=== PATIENT | female | born 1945 | race African-American/Black ===

== ENCOUNTER → 2018-12-12 | Outpatient (CLI) | payer OTHER | LOC: HYPER 12-02 14:47 | DX: E11.622 Type 2 diabetes mellitus with other skin ulcer (principal); L89.154 Pressure ulcer of sacral region, stage 4; L98.491 Non-pressure chronic ulcer of skin of other sites limited to breakdown of skin; E11.40 Type 2 diabetes mellitus with diabetic neuropathy, unspecified; E11.51 Type 2 diabetes mellitus with diabetic peripheral angiopathy without gangrene; E11.69 Type 2 diabetes mellitus with other specified complication; M86.9 Osteomyelitis, unspecified; I25.10 Atherosclerotic heart disease of native coronary artery without angina pectoris; I10 Essential (primary) hypertension; E78.5 Hyperlipidemia, unspecified; K21.9 Gastro-esophageal reflux disease without esophagitis; Z79.84 Long term (current) use of oral hypoglycemic drugs; Z79.4 Long term (current) use of insulin ==

== ENCOUNTER → 2018-12-25 | Outpatient (CLI) | payer OTHER | LOC: HYPER 06:34 | DX: E11.622 Type 2 diabetes mellitus with other skin ulcer (principal); L89.154 Pressure ulcer of sacral region, stage 4; L98.491 Non-pressure chronic ulcer of skin of other sites limited to breakdown of skin; L84 Corns and callosities; E11.51 Type 2 diabetes mellitus with diabetic peripheral angiopathy without gangrene; E11.42 Type 2 diabetes mellitus with diabetic polyneuropathy; E11.69 Type 2 diabetes mellitus with other specified complication; M86.9 Osteomyelitis, unspecified; E78.5 Hyperlipidemia, unspecified; I25.10 Atherosclerotic heart disease of native coronary artery without angina pectoris; I10 Essential (primary) hypertension; K21.9 Gastro-esophageal reflux disease without esophagitis; Z79.84 Long term (current) use of oral hypoglycemic drugs; Z79.4 Long term (current) use of insulin ==

== ENCOUNTER → 2019-01-15 | Outpatient (CLI) | payer OTHER ==
[~2019-01-15] MED LIST: AMLODIPINE BESY10 MG PO; GABAPENTIN 100100 MG PO; JANUVIA 50 MG T50 M1 PO; LANTUS SUBQ; LIPITOR40 MG PO; NOVOLOG100 UNIT/1 SUBQ
== END ==
LOC: HYPER 06:46
DX: E11.622 Type 2 diabetes mellitus with other skin ulcer (principal); L89.154 Pressure ulcer of sacral region, stage 4; L98.491 Non-pressure chronic ulcer of skin of other sites limited to breakdown of skin; E11.51 Type 2 diabetes mellitus with diabetic peripheral angiopathy without gangrene; E11.69 Type 2 diabetes mellitus with other specified complication; M86.9 Osteomyelitis, unspecified; E11.42 Type 2 diabetes mellitus with diabetic polyneuropathy; I10 Essential (primary) hypertension; L84 Corns and callosities; I25.10 Atherosclerotic heart disease of native coronary artery without angina pectoris; E78.5 Hyperlipidemia, unspecified; K21.9 Gastro-esophageal reflux disease without esophagitis; Z79.4 Long term (current) use of insulin; Z79.84 Long term (current) use of oral hypoglycemic drugs

== ENCOUNTER 2019-01-17 05:30 | Inpatient (IN) | payer OTHER ==
[~2019-01-17] VITALS: Ht 160 cm; Wt 75.0 kg
[2019-01-17 07:58] LABS: HEMATOCRIT 25.7 % (37.0-47.0)
[2019-01-17 08:00] LABS: HEMOGLOBIN 7.9 gm/dL (12.0-15.0)
[2019-01-17 08:41] VITALS: BP 98/48
--- NOTE | 2019-01-17 08:44 | EKG ---
[address] [address] ELECTROCARDIOGRAM REPORT Name: RONALDO ACEVEDO Room #: 150-1 ADM IN M.R.#: [id number] ������������������ Admission: 01/17/19 ������������������ Attend Phys: Ant Villalpando MD, Discharge: ������������������ Date of : 47 Report #: [id number] ����������������������������������������������������������������� [id number] THIS REPORT FOR: //name// [facility] Test Date: 2019-01-17 Test Time: 08:01:06 Pat Name: RONALDO ACEVEDO Department: Room: 150 Gender: F Loan Clerk: LAURITA : 1945 Requested By: Ant Villalpando Order Number: [id number] MD: Monroe Goodson Measurements Intervals [place] Rate: 85 P: 62 ID: [id number] QRS: 15 QRSD: 155 T: 172 QT: 401 QTc: 477 Interpretive Statements Sinus rhythm Left bundle branch block No previous ECG available for comparison Electronically Signed On 01-17-2019 8:44:45 CDT by Monroe Goodson [email or web address] ��������������������������������������������� <ELECTRONICALLY SIGNED> ���������������������������������������� By: Monroe Goodson MD, [facility] ��������������������������������������������� 01/17/19 0844 0801 08 Monroe Goodson MD, FACC /EPI
--- NOTE | 2019-01-17 11:58 | O ---
[facility] [place] [address] OPERATIVE REPORT Name: RONALDO ACEVEDO Room #: 150-1 ADM IN M.R.#: [id number] Admission: 01/17/19 ������������������ Attend Phys: Ant Villalpando MD, Discharge: ������������������ Date of : 47 Report #: [id number] THIS REPORT FOR: //name// CC: Ant Mary DATE OF SERVICE: 01/17/2019 PREOPERATIVE DIAGNOSES: 1. 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 2. Paraplegia. 3. Diabetes mellitus. 4. Hypertension. 5 Severe protein-calorie malnutrition. POSTOPERATIVE DIAGNOSES: 1. 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 2. Paraplegia. 3. Diabetes mellitus. 4. Hypertension. 5 Severe protein-calorie malnutrition. PROCEDURES PERFORMED: 1. Excisional debridement of skin, subcutaneous tissue, muscle and bone of a non-healing grossly infected stage 4 sacral decubitus wound, ultimately measuring 17.5 x 17.5 cm in dimension (306.25 cm2). Preoperative wound measurements were 9 x 6 cm with significant periwound necrosis and undermining. 2. Application of extracellular matrix tissue (PriMatrix Ag) to the entire 306.25 cm2 wound. 3. Diverting loop transverse colostomy. SURGEON: Ant Villalpando M.D. WORKFORCE DEVELOPMENT ASSISTANT: None. ANESTHESIA: General endotracheal anesthesia. ESTIMATED BLOOD LOSS: 20 mL. COMPLICATIONS: None appreciated. SPECIMENS: All sacral tissue to pathology, including bone. INDICATIONS: The patient is a 73-year-old -[place] female with long-standing paraplegia, who has developed a severe stage 4 sacral decubitus wound with gross infection with purulent output and exposed bone. The patient [address] [address] OPERATIVE REPORT Name: RONALDO ACEVEDO Room #: 150-1 ADM IN M.R.#: [id number] Admission: 01/17/19 ������������������ Attend Phys: Ant Villalpando MD, Discharge: ������������������ Date of : 47 Report #: [id number] does have chronic fecal contamination of the wound and as such, indication was for the above-mentioned procedures today. DESCRIPTION OF PROCEDURE: After explaining the risks, benefits and alternatives of the procedure with the patient in detail and obtaining consent, the patient was brought to the operating room and placed supine on her hospital bed. After conducting a thorough timeout procedure, verifying correct patient and procedure, the patient was given general endotracheal anesthesia. Once adequate anesthesia was obtained, she was positioned on the operating room table in the prone position, with all pressure points appropriately padded and her sacral wound was prepped and draped in a standard surgical sterile fashion. Electrocautery was used to circumferentially debride all nonviable skin, subcutaneous tissue and muscle from the periphery of the wound, carried down to the bed of the wound where sacral bone was easily evident in the bed of the wound. All gross purulent drainage was wiped away and the debridement was carried back to healthy vascularized tissue throughout. Hemostasis was assured with electrocautery. The Content Ramen ultrasonic debridement tool was used to remove all remaining nonviable tissue as well as biofilm from the entirety of the wound. Gentle manual pressure was held for complete hemostasis aided with electrocautery. As this is such a large wound, I did elect to place a PriMatrix Ag. Two separate 8 x 8 cm pieces of meshed material was utilized to cover the entirety of the wound. This was stapled around the periphery of the wound with a skin stapler and numerous 3-0 Vicryl interrupted sutures were placed throughout the body of the meshed graft to hold it in close approximation with the wound tissue bed. The wound was then covered with Adaptic and stapled to the wound dressed with 4 x 4s, ABDs and Medipore tape. The patient was then positioned in the supine position and her abdomen was prepped and draped in a standard surgical sterile fashion. A #15 bladed scalpel was used to create a 2.5 cm vertical incision midway between the umbilicus and the xiphoid, just to the right of midline. Electrocautery was used to carry this down through skin and subcutaneous tissues until I arrived upon the anterior fascia. The fascia was scored vertically, revealing the right rectus abdominis muscle, of which the belly was split longitudinally with a hemostat. This revealed the posterior rectus sheath, which was elevated between hemostats and opened with Metzenbaum scissors. A finger was placed in the abdomen and the entire wound was opened for the 2.5 cm length. The transverse colon was seen to reside immediately posterior to this incision and was elevated in the wound with Vanessa clamps. A colotomy was made with electrocautery on the antimesenteric aspect of the colon and this was opened in a controlled fashion with a hemostat placed in the colotomy to ensure no damage to the back wall of the colon. This colotomy was extended with electrocautery for hemostasis. I now matured the colostomy using four sutures at the 12, 3, 6, and 9 o'clock positions that were full-thickness sutures, grabbing seromuscular bites lower and to the fascia in standard Natalia fashion. Each of the four resultant quadrants were anchored at the mucocutaneous juncture with short runs of 3-0 Vicryl in standard [address] [address] OPERATIVE REPORT Name: RONALDO ACEVEDO Room #: 150-1 [facility] IN M.R.#: [id number] Admission: 01/17/19 ������������������ Attend Phys: Ant Villalpando MD, Discharge: ������������������ Date of : 47 Report #: [id number] full-thickness fashion. This gave us an excellently oriented loop transverse colostomy and digital finger intubation showed both afferent and efferent limbs patent to a subfascial level. The colostomy was dressed with a sterile 2 piece colostomy appliance completing the procedure. At the end of the procedure, all instrument, needle and sponge counts were correct. The patient tolerated the procedure without incident, was awakened in the operating room and transitioned to the recovery room in stable condition, with no apparent complications. ��������������������������������������������� <ELECTRONICALLY SIGNED> ���������������������������������������� By: Ant Villalpando MD, FACS ��������������������������������������������� 01/17/19 1158 1120 1145 Ant Villalpando MD, FACS /nt
[2019-01-17 13:22] VITALS: BP 113/58
--- NOTE | 2019-01-17 14:45 | NUR ---
WOUND CARE NOTE; ATTEMPTED VAC APPLICATION. WITHIN TWO MINUTES BLEEDING SATURATED THE DRESSING. REMOVED VAC DRESSING. OBTAINED ORDERS TO D/C THE VAC FOR NOW TO ACHIEVE HOMOSTASIS. CCOVERED WOUND WITH NS MOIST DRESSING, COVERED WITH AND ABD, SECURED WITH TAPE DISCUSSED WITH RN
--- NOTE | 2019-01-17 16:15 | NUR ---
PT ADMITTED RELATED TO WOUND DEBRIDEMENT, COLOSTOMY PLACEMENT. CM REVIEWED CHART AND SPOKE WITH CARE TEAM. CM MET WITH PT AT BEDSIDE THIS DAY. CM MET WITH PT AT BEDSIDE THIS DAY. PT IS A&O X4. CM ROLE INTRODUCED. PT INDICATED SHE LIVES IN A HOUSE WITH HER KIDS WITH 1 STEP TO ENTER AND NO STEPS INSIDE. SHE INDICATED THAT SHE HAD USED A MANUAL WHEELCHAIR TO ASSIST WITH MOBILITY PT. SHE INDIATED SHE NEEDED FAMILY TO ASSIST HER WITH TRANSFERS. PT INDICATED SHE HAD BEEN IN SERVICE WITH [facility] IN THE PAST. PT INDICATED SHE IS INTERESTED IN GOING TO A SKILLED REHAB FACILITY ONCE MEDICALLY STABLE. CM TO FOLLOW INDICATED WITH DC PLANNING.
[2019-01-17 17:25] VITALS: BP 105/60
[2019-01-17 19:43] VITALS: BP 95/58
--- NOTE | 2019-01-17 20:15 | NUR ---
Pt admitted on the floor from OR, transferred to bed safely. Pt offered snack pack upon arrival asked if she could have tea and jello instead- given. Able to tolerate dinner. Due medications given as prescribed. Able to swallow tablets w/o difficulty Admission nurse David helped in admitting pt(HX and ED). O2 1 lpm via nasal cannula, called in RT to put humidifier. With colostomy bag- no output yet. A/W OT/PT evaluation. Pt turned on her sides regularly. Sacral wound check with wound nurse, area with mesh stapled, as per wound nurse, d/c vac for the meantime will see on sunday if vac to be resumed, to check wound site frequently for bleeding may change outer dressing, wet to dry gauze + abd, if with further bleeding to contact surgeon- dressing changed 1x by stewart nurse. Pt A+O. Visited by relatives today. Complained of pain, due medications given as prescribed. On blood sugar monitoring- with insulin coverage. Pt with SCDs on, on low air flow mattress. Admitting assessment done on patient. To monitor UO q4- night nurse informed as well as PRN dressing changes. Vital signs stable the whole shift.
[2019-01-18 04:53] VITALS: BP 92/30
[2019-01-18 05:02] LABS: CALCIUM 8.3 mg/dL (8.5-10.1); CREATININE 1.1 mg/dL (0.6-1.0); POTASSIUM 5.2 mmol/L (3.5-5.1)
[2019-01-18 05:05] LABS: HEMOGLOBIN 7.8 gm/dL (12.0-15.0); MCH 23.6 pg (26.0-34.0); MCHC 31.1 g/dL (28.0-37.0); MCV 75.9 fL (80.0-100.0); RBC 3.29 mil/uL (4.20-5.00); RDW 18.6 % (10.5-14.5); WBC 12.8 thou/uL (4.0-11.0)
[2019-01-18 05:58] VITALS: BP 105/53
--- NOTE | 2019-01-18 07:51 | NUR ---
Assumed care at 1845. Pt resting in bed. AOX4. VSS. Turn Q2. Changed dressing in sacral wound. Pt has been incontinent of bowel and bladder. No identified needs at the moment. Will continue to monitor.
[2019-01-18 08:00] VITALS: BP 103/54
[2019-01-18 15:00] VITALS: BP 87/46
--- NOTE | 2019-01-18 17:14 | NUR ---
PT A&OX4, VSS, DENIES PAIN. PATIENT HAS BEEN ABLE TO HELP WITH HER TURNS AND MOVE HERSELF AROUND IN BED. BLOOD PRESSURE HAS BEEN RUNNING LOW, PATIENT ASYMPTOMATIC. CALL MADE TO DOCTOR AND WILL CONTINUE TO MONITOR BLOOD PRESSURE AND PATIENT S/S, ORIENTATION, PER DOCTOR. DRESSING CHANGED TODAY. WILL CONTINUE TO MONITOR.
[2019-01-18 19:13] VITALS: BP 86/41
--- NOTE | 2019-01-19 03:32 | NUR ---
ASSUMED CARE AROUND 1900. AXOX4. COLOSTOMY INTACT. HYPOTENSION ADRRESSED TO MIAH WATCH AND CLOCK REPAIR CLERK, MONITOR FOR NOW PER WATCH AND CLOCK REPAIR CLERK. PT DENIES LIGHTHEADEDNESS/DIZZINESS. NO S/S ACUTE DISTRESS NOTED OR REPORTED AT THIS TIME. WILL CONT TO MONITOR FOR ANY CHANGES IN CONDITION.
[2019-01-19 03:44] VITALS: BP 88/51
[2019-01-19 05:47] LABS: ABSOLUTE NEUTROPHILS 6.7 thou/uL (1.4-8.2); BASOPHILS 0.4 % (0.0-2.0); EOSINOPHILS 1.5 % (0.0-3.0); HEMATOCRIT 22.9 % (37.0-47.0); HEMOGLOBIN 7.1 gm/dL (12.0-15.0); LYMPHOCYTES 21.5 % (24.0-44.0); MCH 23.5 pg (26.0-34.0); MCHC 30.9 g/dL (28.0-37.0); MCV 76.2 fL (80.0-100.0); MONOCYTES 9.3 % (1.0-8.0); PLATELET COUNT 598 thou/uL (150-400); POLYS 67.3 % (36.0-66.0)
[2019-01-19 05:57] LABS: ALBUMIN 1.4 g/dL (3.4-5.0); CALCIUM 8.5 mg/dL (8.5-10.1); CREATININE 1.1 mg/dL (0.6-1.0); PHOSPHORUS 2.6 mg/dL (2.5-4.9); POTASSIUM 5.2 mmol/L (3.5-5.1)
[2019-01-19 07:30] VITALS: BP 87/53
--- NOTE | 2019-01-19 13:45 | NUR ---
TOWARDS POC PT A/O X4, VSS, AFEBRILE, DENIES PAIN. WOUND CARE AND DRESSING DONE. LADD CATH INSERTED. PT HAD BM X2 TODAY. WILL CONTINUE TO MONITOR.
[2019-01-19 14:10] VITALS: BP 94/55
[2019-01-19 20:05] VITALS: BP 99/53
--- NOTE | 2019-01-20 02:50 | NUR ---
ASSUMED CARE AROUND 1900. AXOX4. COLOSTOMY INTACT. BM THRU RECTUMX2. PRODUCING SMALL AMOUNT ON COLOSTOMY AT THIS TIME. SACRAL WOUND DRESSING CHANGEDX2. LADD INTACT DRAINING YELLOW URINE. NO S/S ACUTE DISTRESS NOTED OR REPORTED AT THIS TIME. WILL CONT TO MONITOR FOR ANY CHANGES IN CONDITION.
[2019-01-20 03:53] VITALS: BP 102/58
[2019-01-20 05:44] LABS: HEMATOCRIT 22.7 % (37.0-47.0); HEMOGLOBIN 6.9 gm/dL (12.0-15.0); MCH 23.1 pg (26.0-34.0); MCHC 30.4 g/dL (28.0-37.0); MCV 75.9 fL (80.0-100.0); RBC 2.99 mil/uL (4.20-5.00); RDW 18.4 % (10.5-14.5); WBC 9.2 thou/uL (4.0-11.0)
[2019-01-20 06:03] LABS: % SATURATION 8 % (20-39); IRON 10 ug/dL (50-170); TIBC 123 ug/dL (250-450)
[2019-01-20 06:10] LABS: POTASSIUM 4.5 mmol/L (3.5-5.1)
[2019-01-20 06:49] LABS: FOLIC ACID 5.4 ng/mL (8.6-58.9)
[2019-01-20 07:54] VITALS: BP 100/56
--- NOTE | 2019-01-20 08:40 | HC ---
[facility] [place] [address] CONSULTATION Name: RONALDO ACEVEDO Room #: 458-P ADM IN M.R.#: [id number] Admission: 01/17/19 ������������������ Attend Phys: Ant Villalpando MD, Discharge: ������������������ Date of : 47 Report #: [id number] THIS REPORT FOR: //name// CC: Ant Mary DATE OF SERVICE: 01/17/2019 CHIEF COMPLAINT: Stage 4 sacral pressure ulceration. HISTORY OF PRESENT ILLNESS: This is a 73-year-old female patient known to our practice with a stage 4 pressure ulceration of the sacrum and has become stagnant with rolled edges and is having ongoing fecal contamination. She was admitted to the hospital for surgical debridement as well as diverting colostomy. PAST MEDICAL HISTORY: Positive for paraplegia, stage 4 sacral pressure ulcer, hypertension, severe protein-calorie malnutrition, diabetes mellitus. ALLERGIES: No known drug allergies. MEDICATIONS: Include amlodipine, gabapentin, atorvastatin, insulin, Januvia. FAMILY HISTORY: Noncontributory. SOCIAL HISTORY: Negative for alcohol or tobacco use. REVIEW OF SYSTEMS: CONSTITUTIONAL: The patient denies fever, chills or weight loss. NEUROLOGICAL: The patient has paraplegia. ENT: The patient denies earache, nasal drainage, sore throat. CARDIOVASCULAR: The patient denies chest pain, palpitations or diaphoresis. PULMONARY: The patient denies cough or shortness of breath. GASTROINTESTINAL: The patient denies nausea, vomiting, diarrhea or abdominal pain. She does have recent diverting colostomy today. Other systems in a 14-point review of systems are negative. PHYSICAL EXAMINATION: VITAL SIGNS: At this time include temperature 36.5, pulse 78, respiratory rate 16, blood pressure 113/58. GENERAL: This is a chronically ill-appearing female patient who appears to be in minimal distress. HEENT: Head is normocephalic. Nose and throat clear. NECK: Supple. LUNGS: Clear. [facility] [address] [place] [address] CONSULTATION Name: RONALDO ACEVEDO Room #: 458[facility].#: [id number] Admission: 01/17/19 ������������������ Attend Phys: Ant Villalpando MD, Discharge: ������������������ Date of : 47 Report #: [id number] HEART: Regular. ABDOMEN: Soft. Bowel sounds present. Colostomy appears to be pink and with small amount of bloody output. Sacral region demonstrates sacral ulceration that is clean without evidence of rolled edges. There is a PriMatrix in the base with a protective Adaptic layer above on top of this. NEUROLOGIC: The patient is alert, moving upper extremities. She has lower extremity paralysis. LABORATORY AND DIAGNOSTIC DATA: Hemoglobin 7.9, hematocrit 25.7. CLINICAL IMPRESSION: 1. Stage 4 sacral pressure ulceration, status post surgical debridement and placement of tissue substitute. 2. Status post diverting colostomy. 3. Paraplegia. 4. Diabetes mellitus. 5. Moderate to severe protein-calorie malnutrition. RECOMMENDATIONS: At this point in time, the patient will be placed in the low air loss mattress with q.2 hour turning repositioning. We will place a wound VAC over the surgical wound with the Adaptic and the PriMatrix left in place. We will recommend aggressive nutritional support. Routine postoperative care for the colostomy. Continue with aggressive nutritional support to maximize wound healing. I appreciate being asked to see her in consultation. ��������������������������������������������� <ELECTRONICALLY SIGNED> ���������������������������������������� By: Won Munoz MD ��������������������������������������������� 01/20/19 0840 03 2235 Won Munoz MD /nt
--- NOTE | 2019-01-20 15:01 | NUR ---
CM FOLLOWED UP WITH PT AND DTR THIS DAY AND THEY ASKED THAT REFERRAL BE SENT TO [facility] FOR REVIEW FOR POSSIBLE ADMISSION. CM TO FOLLOW INDICATED WITH DC PLANNING.
--- NOTE | 2019-01-20 15:27 | NUR ---
Discharge Planning: DP faxed initial referral to [facility], vanessa notified [facility]/R[facility] and [facility]. Patient may possibly dc today, although no orders are in at this time.
--- NOTE | 2019-01-20 17:04 | NUR ---
[facility] SANDRA THEY AREN'T ABLE TO MEET PT'S NEEDS. BOP IS TO DO ONSIGHT VISIT WITH PT TOMORROW MORNING. CM TO FOLLOW INDICATED WITH DC PLANNING.
--- NOTE | 2019-01-20 17:05 | PATH ---
[facility] [address] [place] [address] PATHOLOGY RPT PROCEDURE Name: RONALDO ACEVEDO Room #: 458-P ADM IN M.R.#: [id number] ������������������ Admission: 01/17/19 ������������������ Date of : 47 Discharge: Report #: [id number] Path Case #: [id number] [facility] Accession Number: [id number] . 01 Material submitted: . sacrum - SACRAL TISSUE . 01 Clinical history: . Sacral wound . 02 Diagnosis: Sacral tissue, debridement: - Skin and subcutaneous tissue with marked acute inflammation, as well as fibrinoid degeneration in addition to gangrenous necrosis, consistent with debridement tissue. - Viable skin showing reactive changes. (IUV:mauro; 01/20/2019) QMS/01/20/2019 . 02 Electronically signed: . Jessica Yeager MD, Pathologist NPI- [id number] . 01 Gross description: . The specimen is received in formalin, labeled "Lj, Ronaldo, sacral tissue" and consists of a U-shaped segment of partially necrotic brown skin measuring 12.3 x 8.8 x 3.1 cm. Retort Furnace Operator sections are submitted in A1-A2. (SDY; 01/17/2019) SYU/SYU . 02 Pathologist provided ICD-10: L08.9, I96 . 02 CPT . 819456 Specimen Comment: A courtesy copy of this report has been sent to Specimen Comment: [phone], . Specimen Comment: Report sent to DR CASTRO / DR JONES Performed at: [address], [place] [id number] MD Geovany Peterson MD Phone: [phone] Performed at: [address] [id number] MD Jessica Yeager MD Phone: [phone]
[2019-01-20 17:35] VITALS: BP 114/68
[2019-01-20 20:10] VITALS: BP 109/60
--- NOTE | 2019-01-20 20:10 | NUR ---
ASSUMED CARE OF PATIENT AT 0715, PATIENT ALERT AND ORIENTED X 4. PATIENT BEDREST, SINCE SURGERY 01/17/19. PATIENT C/O SOME PAIN WITH RIGHT LOWER ABDOMEN, SACRUM AREA/ BILATERAL LEGS, RECEIVED TYLENOL PRIOR TO THIS SHIFT, TYLENOL GIVEN AT 1521 2 TABLETS WITH COMPLETE RELIEF. PATIENT HAS COLOSTOMY PLACE ON 01/17/19, STILL HAVING STOOLS FROM RECTUM X 3 TODAY, DRESSING CHANGED X3 THIS SHIFT. WOUND CARE SAW PATIENT AND STATED WOUND VAC TODAY, BUT NOT PLACE. PATIENT HAS LEFT FOREARM IV IN PLACE. PATIENT HAS LADD CATHETER IN PLACE WITH ADEQUATE AMT. OF URINE. LABD DRAWN DUE TO HEMG. 6.9, NEW RESULT 7.1, PATIENT STARTED IV IRON. WILL CONTINUE TO MONITOR.
[2019-01-21 03:30] LABS: HEMATOCRIT 22.8 % (37.0-47.0); HEMOGLOBIN 7.1 gm/dL (12.0-15.0); MCH 23.1 pg (26.0-34.0); MCHC 30.9 g/dL (28.0-37.0); MCV 74.8 fL (80.0-100.0); RBC 3.06 mil/uL (4.20-5.00); RDW 18.8 % (10.5-14.5); WBC 12.5 thou/uL (4.0-11.0)
[2019-01-21 04:01] VITALS: BP 92/42
--- NOTE | 2019-01-21 04:24 | NUR ---
A/O, calm and cooperative. WBC elevated, afebrile. Incontinent stool, wound contaminated. Nursing Practioner Julianna Jeb reported. Colostomy bag leaking, awaiting a new bag to replace. C/o pain in abdomen, only accepts Tylenol. c/o nausea, medication given and worked. bed rest, will keep monitoring.
[2019-01-21 07:20] VITALS: BP 94/53
--- NOTE | 2019-01-21 11:23 | NUR ---
WOUND CARE FOLLOW UP; ROUNDING WITH DR GRACE AND EMI SENIOR INTEGRATION ARCHITECT TODAY. VISUALIZED THE SACRAL WOUND, THE GRAFT IS INTACT AN REMAINS STAPLED IN PLACE. DISCHARGE IS IMMINENT.
[2019-01-21 14:06] VITALS: BP 96/50
--- NOTE | 2019-01-21 16:41 | NUR ---
[facility] VISITED AND INDICATED THEY COULD ACCEPT PT BUT THAT PT WILL ADMIT WITH ONE COVERED DAY AND WILL THEN BE IN COPAY DAYS AND WILL OWE $170.50 PER DAY UNTIL $6000 OP IS MET THROUGH HER SECONDARY. CM CALLED PT'S DTR AND LEFT VM WITH THIS INFO TO DETERMINE IF THEY ATE CONFORTABLE WITH PAYING COPAY FOR SNF. [facility] HASN'T HEARD BACK. [facility] CALLED TO SEE IF THEY COVER COPAY AND THEY DO NOT. NO FOLLOWING REGARDING DC PLANNING. PT ISN'T MEDICALLY STABLE AT THIS TIME.
[2019-01-21 19:05] LABS: URINE BILIRUBIN NEGATIVE (Negative); URINE BLOOD 3+ (Negative); URINE CLARITY CLEAR; URINE COLOR YELLOW; URINE GLUCOSE-RANDOM* NEGATIVE (Negative); URINE KETONES NEGATIVE (Negative); URINE LEUKOCYTES-REFLEX 2+ (Negative); URINE NITRITE-REFLEX NEGATIVE (Negative); URINE PROTEIN (DIPSTICK) NEGATIVE (Negative); URINE SPECIFIC GRAVITY <= 1.005 (1.005-1.035); URINE UROBILINOGEN 0.2 E.U./dl (0.2-1.0)
[2019-01-21 19:16] LABS: BACTERIA-REFLEX None Seen /HPF (None Seen); CASTS None Seen /LPF (None Seen); CRYSTALS None Seen /LPF (None Seen); SQUAMOUS 4-10 Moderate /LPF (0-3); URINE WBC-REFLEX 6-15 Few /HPF (0-5); YEAST-REFLEX Present (None Seen)
[2019-01-21 20:09] VITALS: BP 93/48
--- NOTE | 2019-01-21 20:10 | NUR ---
PT A&OX4, VSS, PAIN IN SACRUM MANAGED WITH PAIN. PATIENT TURNED Q2, DRESSING CHANGED THREE TIMES TODAY D/T LOOSE STOOLS. PT HAD NEW COLOSTOMY BAG PLACED. FAMILY AT BEDSIDE. PT AWAITING PLACEMENT TO FACILITY. FALL BUNDLE IN PLACE, WILL CONTINUE TO MONITOR.
[2019-01-22 00:18] VITALS: BP 92/54
[2019-01-22 04:44] LABS: MCH 23.1 pg (26.0-34.0); MCHC 30.7 g/dL (28.0-37.0); MCV 75.2 fL (80.0-100.0); RBC 2.64 mil/uL (4.20-5.00); WBC 17.8 thou/uL (4.0-11.0)
[2019-01-22 04:47] LABS: HEMATOCRIT 19.9 % (37.0-47.0); HEMOGLOBIN 6.1 gm/dL (12.0-15.0)
[2019-01-22 04:56] LABS: ALBUMIN 1.2 g/dL (3.4-5.0); CALCIUM 8.5 mg/dL (8.5-10.1); MAGNESIUM 1.5 mg/dL (1.8-2.4); POTASSIUM 4.6 mmol/L (3.5-5.1); TOTAL BILIRUBIN 0.1 mg/dL (<0.1-1.0); TOTAL PROTEIN 5.5 g/dL (6.4-8.2)
[2019-01-22 05:03] VITALS: BP 89/51
--- NOTE | 2019-01-22 06:34 | NUR ---
Received crital labs Hgb 6.1 and Hct 19[address] Wheatley recieved orders for one unit of blood. Will notify the incoming nurse to order labs for hgb 30mins after infusion.
[2019-01-22 07:35] VITALS: BP 81/45
[2019-01-22 12:35] VITALS: BP 100/57; BP 109/56
--- NOTE | 2019-01-22 17:14 | NUR ---
JoannaN IS ASSESSING AND ASKED [facility] MCKEON SOME ADDITIONAL INFO FOR PT'S DTR REGARDING PLOF. MYRIAM INDICATED THAT PT HAD BEEN AMBULATORY UP UNTIL MID OCTOBER WITH A FWW. SHE INDICATED THAT PT HAD BEEN ABLE TO ASSIST WITH SBA WITH HER OWN TRANSFERS COMPUTER GAME TESTER. MYRIAM INDICATED THAT HER DTR AND BROTHER ARE IN THE HOME AND WILL BE ABLE TO ASSIST PT WITH CARES UPON HER RETURN HOME. PINO CONVEYED THIS TO [facility] LIAISON. OT IS TO WORK WITH PT IN THE AM. PT WAS GETTING BLOOD TODAY AND HADN'T BEEN ABLE TO PARTICIPATE WITH THERAPY WELL. PINO العلي INDICATED WITH DC PLANNING.
[2019-01-22 19:07] VITALS: BP 108/62
--- NOTE | 2019-01-22 19:59 | NUR ---
ASSUMED CARE OF PATIENT AT 0715, PATIENT ALERT AND ORIENTED X 4. PATIENT ON BEDREST. PT TRIED TO WORK WITH PATIENT SHE WAS TOO WEAKM OT WILL TRY TOMORROW, DUE TO PATIENT RECEIVING BLOOD. PATIENT HEMG. 6.1, ORDER FOR TRANSFUSE 1 UNIT OF BLOOD DONE THIS SHIFT COMPLETED AT 1655, NO REACTION NOTED, VITAL SIGNS STABLE AFTER BLOOD RECEIVED, IV WENT BAD DURING START OF BLOOD, NEW IV INSERTED PER IV TEAM, VITALS SIGNS DONE OVER WHEN BLOOD RESTARTED. B/P LOW THIS AM, DR SONG NOTIFIED. COLOSTOMY WORKING FINE, OUTPUT GOOD. PATIENT HAS LADD CATHETER IN PLACE WITH ADEQUATE OUTPUT. PATIENT RECEIVED TYLENOL 650 X 1 THIS SHIFT. WOUND CARE APPLIED WOUND VAC TODAY. TURN Q2HRS. REHAB CONSULT FOR [facility], STILL WAITING ON PALCEMENT. MEW IV IN RIGHT FOREARM. WILL CONTINUE TO MONITOR
[2019-01-23 03:24] VITALS: BP 86/44
--- NOTE | 2019-01-23 04:30 | NUR ---
Pt. rested quietly at intervals during the night when checked on during frequent rounds. She c/o buttocks pain and was given po tylenol (see emar) with some relief noted. Pt. having some stool from rectum, but mostly via colostomy bag. Wound vac intact to buttocks area. Bed alarm is on.
[2019-01-23 04:56] LABS: HEMATOCRIT 23.4 % (37.0-47.0); HEMOGLOBIN 7.1 gm/dL (12.0-15.0); MCH 23.4 pg (26.0-34.0); MCHC 30.3 g/dL (28.0-37.0); MCV 77.2 fL (80.0-100.0); RBC 3.03 mil/uL (4.20-5.00); RDW 19.9 % (10.5-14.5); WBC 19.1 thou/uL (4.0-11.0)
[2019-01-23 08:45] VITALS: BP 91/53
--- NOTE | 2019-01-23 08:49 | NUR ---
OSTOMY CARE; pouch leaking, changed using 2 piece kiersten cut to fit appliance w/ adapt ring under wafer, peristomal skin intact, stoma pink viable slightly budded, loose brown stool noted, staff radiation therapist states most stool coming thru colostomy now and not rectum, pt alert and cooperative, receptive to education, supplies and info left at bs, will cont to follow prn
--- NOTE | 2019-01-23 16:55 | NUR ---
[facility] ACCEPTED PT FOR ADMISSION. IT IS ANTICPATED THAT SHE WILL DISHCARGE TO [facility] TOMORROW.
[2019-01-23 19:26] VITALS: BP 104/51
--- NOTE | 2019-01-23 20:16 | NUR ---
ASSUMED CARE OF PATIENT AT 0715, PATIENT ALERT AND ORIENTED X 4. PATIENT ON BEDREST. PATIENT C/O PAIN WITH BUTTOCKS, AND C/O PAIN WITH RIGHT LOWER QUAD. RECEIVED TYLENOL 650 MG X 1 THIS SHIFT. PATIENT C/O NAUSEA, RECEIVED ZOFRAN 4 MG X 1, PATIENT DID VOMIT LARGE AMT. PRIOR TO DINNER, THIS RN NOTIFIED DR SONG OF NO BM IN COLOSTOMY, RIGHT LOWER QUAD PAIN, AND NAUSEA, RECEIVED ORDER FOR KUB. CATIE HAS RIGHT FOREARM IV WITH NS AT 100CC/HR, AND RECEIVED IRON IVPB X 1 THIS SHIFT. PATIENT DID HAVE 1 LOOSE STOOL FROM RECTUM, COLOSTOMY BAG CHANGED THIS AM BY OSTOMY NURSE/MARY JANE. PATIENT WILL BE GOING TO [facility] TOMORROW. WILL CONTINUE TO MONITOR.
--- NOTE | 2019-01-24 03:57 | NUR ---
Pt. rested quietly at intervals during the night when checked on during frequent rounds. She did refuse to be turned during the night. Colostomy bag and wound vac patent. No c/o nausea or emesis. Po tylenol given (see emar) for abdominal discomfort with some relief noted. Bed alarm is on.
[2019-01-24 05:26] VITALS: BP 106/49
[2019-01-24 07:30] VITALS: BP 105/63
--- NOTE | 2019-01-24 11:12 | NUR ---
OSTOMY CARE; pouch intact, no leakage, liq to mushy stool noted, receptive to education, questions answered regarding ostomy care management, supplies at bs, will cont to follow
--- NOTE | 2019-01-24 11:21 | NUR ---
WOUND CARE FOLLOW UP; PATIENT AND STAFF COMPLAINED TODAY ABOUT ODOR. THE ASSESSMENT IDENTIFIED THAT THE GRAFT HAD FAILED AND THERE IS NECROSIS PRESENT. BONE IS PRESENT WELL. RECOMMENDATIONS; CONTINUE THE VAC FOR NOW. DISCUSSED WITH RN
--- NOTE | 2019-01-24 14:16 | NUR ---
PLAN FOR PATIENT INITIALLY WAS FOR PATIENT TO ADMIT TO ACUTE REHAB THIS DATE. PATEINT IS NOW HAVING A DEBRIDEMENT ON SUNDAY, JANUARY 27. WILL ANTICIPATE ADISSION IN THE BEGINING OF NEXT WEEK. WILL CONTINUE TO FOLLOW.
[2019-01-24 15:56] VITALS: BP 97/58
[2019-01-24 15:57] VITALS: BP 97/58
--- NOTE | 2019-01-24 17:01 | NUR ---
CANCELLED DC PT IS IS DC FOR [facility] TODAY BUT WAS CANCELLED BY PROVIDER DUE TO NAUSEA/VOMITING. WILL BE DC ON SUNDAY. LADD CATH STILL INTACT, OSTOMY DRAINING WELL. WOUND VAC STILL INTACT, WORKING WELL. NAUSEA AND VOMITING MANAGED BY MEDS. WILL CONTINUE TO MONITOR.
[2019-01-24 19:01] VITALS: BP 102/49
[2019-01-25 06:23] VITALS: BP 105/55
--- NOTE | 2019-01-25 07:47 | NUR ---
progress pt a/o x4 vss, still having a little nausea and had a small amount of clear emesis. zofran given with effect. pt ate some nepalese ice with no difficulty. ivf infusing as ordered wound vac intact reading 125cm of sx, pt assists in repositioning self. continue poc.
[2019-01-25 07:51] VITALS: BP 103/61
[2019-01-25 14:05] VITALS: BP 106/57
[2019-01-25 14:34] VITALS: BP 106/67
--- NOTE | 2019-01-25 17:15 | NUR ---
PT A&OX4, VSS, AFEBRILE. PATIENT HAD PAIN IN COCCYX, MANAGED WITH NORCO THIS AM. WOUND VAC DRESSING INTACT, SEROUS DRAINAGE OBSERVED. PATIENT TURN OFTEN TODAY, COLOSTOMY AND LADD CARE PROVIDED. PATIENT HAD C/O NAUSEA BUT REFUSED MEDICATION; SHES HAD A SMALL APPETITE TODAY. AWAITING DISCHARGE TO 5N. WILL CONTINUE TO MONITOR.
[2019-01-25 20:00] VITALS: BP 104/58
[2019-01-25 20:04] VITALS: BP 104/58
--- NOTE | 2019-01-26 02:29 | NUR ---
ASSUMED CARE OF PT @1900. A&OX4. SACRAL WOUND VAC INTACT @125 WITH DRAINAGE NOTED. FOLLEY CATHETER IN PLACE AND YELLOW URINE NOTED. COLOSTOMY BAG IN PLACE. PT REPOSITIONED AT NIGHT. MEDS GIVEN AND POC DONE. FALL PREC IN PLACE AND BED IN LOW POSITION WILL CONTINUE TO MONITOR
[2019-01-26 04:33] VITALS: BP 123/70
[2019-01-26 05:50] LABS: ABSOLUTE NEUTROPHILS 13.7 thou/uL (1.4-8.2); BASOPHILS 0.4 % (0.0-2.0); EOSINOPHILS 1.2 % (0.0-3.0); HEMATOCRIT 24.4 % (37.0-47.0); HEMOGLOBIN 7.2 gm/dL (12.0-15.0); LYMPHOCYTES 9.4 % (24.0-44.0); MCH 23.7 pg (26.0-34.0); MCHC 29.5 g/dL (28.0-37.0); MCV 80.6 fL (80.0-100.0); MONOCYTES 8.5 % (1.0-8.0); PLATELET COUNT 535 thou/uL (150-400); POLYS 80.5 % (36.0-66.0); RBC 3.03 mil/uL (4.20-5.00); RDW 20.8 % (10.5-14.5); WBC 17.1 thou/uL (4.0-11.0)
[2019-01-26 06:06] LABS: CALCIUM 8.6 mg/dL (8.5-10.1); CREATININE 0.7 mg/dL (0.6-1.0); POTASSIUM 4.4 mmol/L (3.5-5.1)
[2019-01-26 07:10] VITALS: BP 103/65
[2019-01-26 14:01] VITALS: BP 117/67
[2019-01-26 16:00] VITALS: BP 131/60
--- NOTE | 2019-01-26 17:33 | NUR ---
Assumed pt care this am pt stayed in the bed the whole day but is able to turn q2. Would Vac was not holding suction, dressing opened with Dr. Burton, foul odor was noted on the site. Cleaned with Dakins anad packed with kerlix and abd. Consent signed by DPO for excisional and ultrasonic debridment of sacral decubitus ulcer tomorrow, pt needs to be npo post midnight. Pain was noted when moved. manaed with pain medication. FC intact and draing yellow urine. Colostomy bag in place draining greenish brown stool. POC followed. No signs of distress verbalized or noted.
[2019-01-26 20:23] VITALS: BP 98/58
--- NOTE | 2019-01-27 02:43 | NUR ---
ASSUMED CARE AROUND 1900. AXOX4. KEPT NPO AFTER MN FOR PROCEDURE IN AM. NO S/S ACUTE DISTRESS NOTED OR REPORTED AT THIS TIME. WILL CONT TO MONITOR FOR ANY CHANGES IN CONDITION.
[2019-01-27 04:40] VITALS: BP 122/70
[2019-01-27 08:06] VITALS: BP 104/64
--- NOTE | 2019-01-27 10:46 | NUR ---
OSTOMY CARE; pouch on 4 days, changed using 2 piece system w/ adapt ring, loop stoma pink viable slightly budded w/ loose brown stool noted, granddaughter at bs, both receptive to education, new pouch kiersten 2 piece system w/ adapt ring applied, peristomal skin intact, supplies and info at bs, will to follow prn
--- NOTE | 2019-01-27 10:47 | NUR ---
Nutrition: Folate level 5.4 on 01/20. REC order folic acid supplementation.
--- NOTE | 2019-01-27 12:20 | NUR ---
TOWARDS POC PT A/O X4, VSS, AFEBRILE. DENIES PAIN. PT SCHEDULED FOR I&D FOR 11AM TOMORROW. WOUND CARE AND DRESSING DONE. OSTOMY CARE DONE BY O. NURSE. LADD IS STILL INTACT AND CLEAned. NO CONCERNS VOICED WILL CONTINUE TO MONITOR.
--- NOTE | 2019-01-27 12:46 | NUR ---
WOUND CARE FOLLOW UP; ROUNDING WITH DR BINU GRACE AND EMI KETTLE LOADER. THE VAC WAS D/C'D OVER THE WEEKEND RE; ODOR BY DR PARHAM. DAKINS WAS ORDERED DAILY. THE WOUND LOOKS BETTER, LESS NONVIABLE TISSUE PRESENT AND NO ODOR TODAY. RECOMMENDATIONS; CONTINUE DAKINS FOR NOW. WE WILL EVALUATE DAILY. DISCUSSED WITH OBIE
--- NOTE | 2019-01-27 14:58 | NUR ---
PT IS TO HAVE A REPEAT DEBRIDEMENT TODAY. 5N IS FOLLOWING FOR ADMISSION ONCE PT IS MEDICALLY STABLE. CM TO FOLLOW INDICATED WITH DC PLANNING.
[2019-01-27 15:03] VITALS: BP 120/59
[2019-01-27 19:29] VITALS: BP 117/70
[2019-01-28] VITALS (10 sets, daily range): BP systolic 104–119; BP diastolic 61–72
[2019-01-28 04:57] LABS: HEMATOCRIT 25.8 % (37.0-47.0); HEMOGLOBIN 7.7 gm/dL (12.0-15.0); MCH 24.2 pg (26.0-34.0); MCHC 29.7 g/dL (28.0-37.0); MCV 81.5 fL (80.0-100.0); RBC 3.16 mil/uL (4.20-5.00); RDW 21.5 % (10.5-14.5); WBC 16.8 thou/uL (4.0-11.0)
--- NOTE | 2019-01-28 04:58 | NUR ---
Pt. rested quietly at short intervals during the night when checked on during frequent rounds. She c/o some shortness of air and O2 saturation at 95% on room air. No signs of any distress, but pt. does verbalize some anxiety about her sugery. Pain med given (see emar) for c/o buttocks pain with some relief noted. Pt. more comfortabe after her son showed up for the night. No further c/o shortness of air.
[2019-01-28 05:12] LABS: ALBUMIN 1.2 g/dL (3.4-5.0); ANION GAP 8 mmol/L (7-16); BUN 11 mg/dL (7-18); CALCIUM 8.3 mg/dL (8.5-10.1); CHLORIDE 109 mmol/L (98-107); CO2 21 mmol/L (21-32); CREATININE 0.8 mg/dL (0.6-1.0); GLUCOSE 210 mg/dL (74-106); MAGNESIUM 1.9 mg/dL (1.8-2.4); POTASSIUM 4.8 mmol/L (3.5-5.1); SGOT 39 U/L (15-37); SGPT 37 U/L (30-65); SODIUM 138 mmol/L (136-145); TOTAL BILIRUBIN < 0.1 mg/dL (<0.1-1.0); TOTAL PROTEIN 6.8 g/dL (6.4-8.2)
--- NOTE | 2019-01-28 08:25 | NUR ---
PATIENT SCHEDULED TO HAVE SURGERY ON WOUND THIS DATE. PATIENT DID DECLINE PHYSICAL THERAPY YESTERDAY DUE TO WOUND BEING TOO SORE TO PARTICIPATE. WILL NEED TO SEE HOW WELL PATIENT IS ABLE TO PARTICIPATE AFTER SURGERY TO SEE IF PATIENT WILL BE ABLE TO TOLERATE 3 HOURS OF THERAPY A DAY THAT IS REQUIRED FOR REHAB. WILL CONTINUE TO FOLLOW.
--- NOTE | 2019-01-28 18:22 | NUR ---
PT WENT TO SURGERY FOR DEBRIDEMENT OF SACRAL WOUND TODAY. PT CAME BACK WITH DRESSING PRESENT THAT IS CDI. SEE ORDERS FROM SURGEON REGARDING ONLY REINFORCMENT TO DRESSING. PT C/O PAIN AT A 10/10.PT GIVEN 2 PO PAIN PILLS ORDERED AND PT STATES THAT TOOK PAIN TO A ZERO. PT IS A Q2 HOUR TURN HOWEVER PT DOES REFUSE MOST TURNS EVEN WITH ENCOURAGEMENT AND EDUCATION OF POTENTIAL OF MORE PRESSURE ULCERS. PT STILL REFUSES. FAMILY IN ROOM MOST OF SHIFT WITH PATIENT. PACU STATED THAT PT WAS CONFUSED IN RECOVERY HOWEVER PT WAS ORIENTED ONCE SHE ARRIVED TO ROOM.
[2019-01-29 03:24] VITALS: BP 109/65
--- NOTE | 2019-01-29 07:50 | EKG ---
[address] [place] [address] ELECTROCARDIOGRAM REPORT Name: RONALDO ACEVEDO Room #: 458-P ADM IN M.R.#: [id number] ������������������ Admission: 01/17/19 ������������������ Attend Phys: Ant Villalpando MD, Discharge: ������������������ Date of : 47 Report #: [id number] ����������������������������������������������������������������� [id number] THIS REPORT FOR: //name// [facility] Test Date: 2019-01-28 Test Time: 13:00:55 Pat Name: RONALDO ACEVEDO Department: Room: 458 P Gender: F Solar Designer/Installer: nathalia : 1945 Requested By: Ant Villalpando Order Number: [id number] MD: Monroe Goodson Measurements Intervals [place] Rate: 82 P: 218 LA: 118 QRS: 86 QRSD: 149 T: -29 QT: 470 QTc: 549 Interpretive Statements Sinus rhythm Left bundle branch block Compared to ECG 01/17/2019 08:01:06 No significant change was found Electronically Signed On 01-29-2019 7:49:45 CDT by Monroe Goodson [email or web address] ��������������������������������������������� <ELECTRONICALLY SIGNED> ���������������������������������������� By: Monroe Goodson MD, [facility] ��������������������������������������������� 01/29/19 0749 1300 1300 Monroe Goodson MD, FAC /EPI
[2019-01-29 08:06] VITALS: BP 115/59
[2019-01-29] MEDS ORDERED: LEVAQUIN 500 M500 M2 PO (09:47)
--- NOTE | 2019-01-29 11:32 | NUR ---
TOWARDS POC PT A/O X4, VSS, AFEBRILE. NO NV, NO SOA. PRN PAIN MED GIVEN. WILL DO DRESSING CHANGE ONCE ORDERS ARE IN. PT DC TO 5N TODAY. WILL CONTINUE TO MONITOR.
[2019-01-29 14:48] VITALS: BP 108/52
--- NOTE | 2019-01-29 15:53 | NUR ---
CARE TEAM INDICATED THAT PT IS MEDICALLY STABLE TO DISCHARGE TO 5 ACUTE INPATIENT REHAB THIS DAY. CM NOTIFIED PT'S DTR MYRIAM. NO OTHER CM INTERVENTION INDICATED AT THIS TIME. CASE CLOSED.
--- NOTE | 2019-01-31 10:01 | HC ---
[facility] [place] [address] CONSULTATION Name: RONALDO ACEVEDO Room #: 458-P [facility] IN M.R.#: [id number] Admission: 01/17/19 ������������������ Attend Phys: Ant Villalpando MD, Discharge: 01/29/19 ������������������ Date of : 47 Report #: [id number] THIS REPORT FOR: //name// CC: Ant Mary DATE OF SERVICE: 01/22/2019 HISTORY OF PRESENT ILLNESS: The patient is a 73-year-old white female admitted with noted incomplete paraparesis. She apparently had a surgery on a cyst, over at [facility] approximately 2 months ago. She is a limited historian, but since that time has had significant lower extremity weakness/dense paraparesis. She went to [place] for some skilled level therapies and has been home with her family. She has a problem with a nonhealing stage IV sacral pressure ulcer with chronic fecal contamination and thus was admitted to [facility] and underwent an elective laparoscopic diverting colostomy with wound debridement on 01/17/2019. She is to have the wound VAC in place with a low air loss mattress with frequent turning. We are seeing her in rehabilitation medicine consultation. She does have history of insulin-dependent diabetes mellitus and has a history of peripheral neuropathy, history of cardiac stents, hypertension, severe calorie malnutrition. MEDICATIONS: Please see the full medication listing. ALLERGIES: No known drug allergies. SOCIAL HISTORY: She has been living with her family the past month. This is a house with several adult children, one step to get in. She notes she does have someone there with her all the time. Her son will lift her with a gait belt into the wheelchair. Family is apparently assisted with squat pivot transfers into the wheelchair the past couple of weeks. REVIEW OF SYSTEMS: Did not offer any current complaints of chest pain, shortness of breath or abdominal discomfort. PHYSICAL EXAMINATION: GENERAL: A 73-year-old -Cypriot female in no obvious distress. VITAL SIGNS: Last recorded temperature 99.4, pulse 85, respirations 18, blood pressure 81/45. NEUROLOGIC: The patient is alert. She is pleasant, follows basic commands. Functional range of motion of both upper extremities. Strength is grade 3+4-/5. She does have some weak intrinsic strength of both hands, right greater than left, which I am attributing to her peripheral neuropathy. DTRs are 1. In her lower extremities, she has strength at least a grade 3-/5 both lower extremities. DTRs are trace. Sensation, there is at least some sensation to [facility] [address] [place] [address] CONSULTATION Name: RONALDO ACEVEDO Room #: 458-P [facility] IN M.R.#: [id number] Admission: 01/17/19 ������������������ Attend Phys: Ant Villalpando MD, Discharge: 01/29/19 ������������������ Date of : 47 Report #: [id number] simultaneous stimulation of both lower extremities. She has definite decreased sensation bilateral large toes. Functionally, she has been mod assist, sit to supine, assist with sit to stand. Toilet transfers have been dependent. She does have the dressing over her buttock wound. She has the colostomy and has an indwelling Smith catheter. ASSESSMENT: A 73-year-old female with the following problem list: 1. Incomplete paraparesis. 2. Sacral decubitus ulcer, stage IV nonhealing with chronic fecal contamination. 3. Status post elective laparoscopic diverting colostomy with wound debridement on 01/17/2019. 4. Insulin-dependent diabetes mellitus with prior history of peripheral neuropathy. She does have bilateral hand intrinsic weakness, right greater than left. 5. Hypertension. 6. Cardiac stents. 7. Protein-calorie malnutrition. PLAN: Assessments are being done regarding options for her further therapy. She is hoping to improve her functional independence with lower extremity strength and work on transfers and appropriate education that would need to be done with family for eventual transition back to the home setting after she receives further nursing and rehabilitation therapies. We will be assessing with you and follow along. At this point, I am uncertain if she would meet criteria for a , but we will follow along for now. ��������������������������������������������� <ELECTRONICALLY SIGNED> ���������������������������������������� By: Tacho Rizvi MD ��������������������������������������������� 01/31/19 1001 1059 [id number] Tacho Rizvi MD /[facility]
== END 2019-01-29 19:11 | DRG 981 ==
LOC: TBA 05:30 → 4W 05:30 → PRE 09:29 → 4W 13:00
PROVIDERS: Hospitalist; Nurse Practitioner Family; ADMIT Surgery
DX: L89.154 Pressure ulcer of sacral region, stage 4 (principal); E43 Unspecified severe protein-calorie malnutrition; G82.22 Paraplegia, incomplete; N39.0 Urinary tract infection, site not specified; I96 Gangrene, not elsewhere classified; E11.52 Type 2 diabetes mellitus with diabetic peripheral angiopathy with gangrene; I10 Essential (primary) hypertension; E11.42 Type 2 diabetes mellitus with diabetic polyneuropathy; E78.00 Pure hypercholesterolemia, unspecified; D64.9 Anemia, unspecified; E87.5 Hyperkalemia; I95.9 Hypotension, unspecified; I25.10 Atherosclerotic heart disease of native coronary artery without angina pectoris; E61.1 Iron deficiency; D72.829 Elevated white blood cell count, unspecified; B96.89 Other specified bacterial agents as the cause of diseases classified elsewhere; Z68.29 Body mass index [BMI] 29.0-29.9, adult; Z79.4 Long term (current) use of insulin; Z95.5 Presence of coronary angioplasty implant and graft; Z79.899 Other long term (current) drug therapy; Z90.49 Acquired absence of other specified parts of digestive tract; Z98.42 Cataract extraction status, left eye; Z98.41 Cataract extraction status, right eye
CPT/HCPCS: 10047; 50010; 50101; 50386; 50403; 51412; 56524; 57092; 57119; 57120; 57143; 62110; 62900; 70005

== ENCOUNTER 2019-01-23 18:54 | Inpatient (IN) | payer OTHER ==
[~2019-01-23] VITALS: Ht 160 cm; Wt 100.2 kg
[2019-01-29] MEDS ORDERED: LEVAQUIN 500 M500 M2 PO (09:47)
--- NOTE | 2019-01-29 10:29 | O ---
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 PROCEDURES PERFORMED: Excisional debridement of skin, subcutaneous tissue, muscle and bone of a stage 4 sacral decubitus wound with necrosis, ultimately measuring 15 x 15 cm in dimension (225 square cm). Preoperative wound measurements were 15 x 13 cm in dimension with wound necrosis to the left lateral aspect of the patient's sacral wound. SURGEON: Ant Villalpando M.D. PATIENT FINANCIAL SERVICES COORDINATOR: None. ANESTHESIA: General endotracheal anesthesia. ESTIMATED BLOOD LOSS: Minimal (less than 10 mL). COMPLICATIONS: None appreciated. SPECIMENS: All excised tissue to pathology. INDICATIONS: The patient is a 73-year-old -[place] female with generalized debility and protein-calorie malnutrition, who developed a stage IV sacral decubitus wound and underwent debridement with application of extracellular matrix tissue and diverting colostomy. Unfortunately, the patient's extracellular matrix tissue sloughed and became necrotic and the patient's wound requires repeat debridement today. DESCRIPTION OF PROCEDURE: After explaining the risks, benefits, alternatives of the procedure with the patient in detail and obtaining consent, the patient was brought to the operating room, placed supine on her hospital bed. After conducting a thorough timeout procedure verifying correct patient and procedure, the patient was given general endotracheal anesthesia. Once adequate anesthesia was obtained, her SCDs were hooked up to pneumatic compression device and she was already on an inpatient regimen of IV antibiotic therapy, which was all in line with the SCIP protocol. The patient was now positioned in the prone position with all pressure points appropriately padded and care was taken to not [address] [address] OPERATIVE REPORT Name: RONALDO ACEVEDO Room #: PRE IN ..#: [id number] Admission: ������������������ Attend Phys: Tacho Rizvi MD Discharge: ������������������ Date of : 47 Report #: [id number] disturb her diverting colostomy. The patient's sacral wound was then prepped and draped in the standard surgical sterile fashion. Electrocautery was used to circumferentially debride all nonviable skin, subcutaneous tissue, muscle, and bone from the periphery of the wound, carried down to the bed of the wound. The Zinitixonix ultrasonic debridement tool was now used to remove all remaining biofilm and nonviable tissue. Hemostasis was assured with pressure and electrocautery. The wound was then packed tightly with sterile saline soaked Kerlix gauze, dressed with ABDs, 4 x 4, Medipore tape. At the end of the procedure, all instrument, needle and sponge counts were correct. The patient tolerated the procedure without incident, was awakened in the operating room and transitioned to the recovery room in stable condition with no apparent complications. ��������������������������������������������� <ELECTRONICALLY SIGNED> ���������������������������������������� By: Ant Villalpando MD, FACS ��������������������������������������������� 01/29/19 1029 1244 1302 nAt Villalpando MD, FACS /nt
--- NOTE | 2019-01-29 15:40 | NUR ---
cm visited with pt at bedside, she able to make her needs know. intro to cm, dcp, home health and team meeting. pt a & o x 3 with forgetfulness. pt reported " was walking till not long ago, live in house with daughter using friends wheel chair until get one here. have to take sponge baths. daughter helps with medication lately. family looking into ramp for 2 steps in and out of house. have hh. thanks for letting be know will be going to rehab and looking for special spoon use for meals"/lyn. mya passed on question about spoon to bedside nurse. pt is able to hold adaptive spoon to feed her self. will cont follow as needed for dc needs.
[2019-01-29 19:10] VITALS: BP 122/70
[2019-01-30 05:53] LABS: HEMATOCRIT 27.2 % (37.0-47.0); HEMOGLOBIN 8.1 gm/dL (12.0-15.0); MCH 24.4 pg (26.0-34.0); MCHC 29.8 g/dL (28.0-37.0); RBC 3.32 mil/uL (4.20-5.00); RDW 22.2 % (10.5-14.5); WBC 13.8 thou/uL (4.0-11.0)
[2019-01-30 06:02] LABS: CALCIUM 8.7 mg/dL (8.5-10.1); CREATININE 0.8 mg/dL (0.6-1.0); POTASSIUM 4.7 mmol/L (3.5-5.1)
--- NOTE | 2019-01-30 06:24 | NUR ---
TURNED SIDE TO SIDE Q 2 HOURS, TWICE HAD DIFFICULTY FINDING A POSITION OF COMFORT. LADD TO DD, SMALL AMOUNT SOFT STOOL FROM COLOSTOMY. PATIENT AWARE OF LARGE SACRAL WOUND, BUT IS NOT HAVING PAIN AT THIS TIME.
[2019-01-30 08:20] VITALS: BP 110/67
--- NOTE | 2019-01-30 09:31 | NUR ---
ostomy care; pouch changed using 2 piece kiersten system, loop stoma pink viable flat w/ skin surface, peristomal skin intact, adapt ring applied under wafer, receptive to education, encouraged to participate in ostomy care especially emptying appliance, info and supplies at bs, will cont to follow prn
[2019-01-30 20:22] VITALS: BP 114/51
--- NOTE | 2019-01-31 03:13 | NUR ---
TURNING PATIENT FOR COMFORT AND FOR SACRLA PRESSURE RELIEF. DRESSING CHANGE AT 0100 DUE TO FULLY SATURATED ABD OVER WET TO DRY 1/2 STRENGTH DAKIN'S KERLIX. PATIENT FELT HYPOGLYCEMIC SYMPTOMS OF BEING SLIGHTLY WEAK AND SWAEATY AT 0130, FBS = 124. FAMILY MEMBER STAYING OVERNIGHT TO EASE HER ANXIETY. STATES MELATONIN DID NOT WORK FOR HER. SHE IS SLEEPING NOW, BUT WAS AWAKE FOR 4 HOURS AFTER TAKING PILL. ULTRAM WAS GIVEN FOR PAIN THAT OCCURED SOON AFTER DAKIN'S DRESSING CHANGE
[2019-01-31 08:30] VITALS: BP 122/74
--- NOTE | 2019-01-31 12:45 | NUR ---
Nutrition: pt admit to rehab unit with incomplete parapesis, stage 4 sacral decub, S/P diverting colostomy and debridement x 2 on acute. Stable weights, UBW 165#. Pt with fairly good intake, 50-75% of meals so far on acute. Does well with ensure max and ajay supplements and understands protein needs. Food preferences obtained. Place as low risk with interventions in place.
--- NOTE | 2019-01-31 13:05 | PATH ---
[facility] [address] [place] [address] PATHOLOGY RPT PROCEDURE Name: RONALDO ACEVEDO Room #: 516-1 ADM IN M.R.#: [id number] ������������������ Admission: 01/29/19 ������������������ Date of : 47 Discharge: Report #: [id number] Path Case #: [id number] [facility] Accession Number: [id number] . 01 Material submitted: . sacrum - SACRAL WOUND . 01 Clinical history: . Sacral wound . 02 Diagnosis: Sacral wound, debridement: - Skin and subcutaneous tissue with extensive ulceration, acute inflammation with abscess formation and fibrinoid degeneration. (IUV/db; 01/31/2019) LBQ/01/31/2019 . 02 Electronically signed: . Jessica Yeager MD, Pathologist NPI- [id number] . 01 Gross description: . Received in formalin labeled "Lj, Ronaldo, sacral wound," is a segment of pale yellow-paez to dark paez-brown and partially necrotic-appearing soft tissue with attached elongate segment of granular, benoit-paez to partially necrotic-appearing skin measuring 10.8 x 5.2 x 1.8 cm in greatest dimensions. Serial sectioning reveals pale yellow-paez to dark paez-brown, extensively hemorrhagic and indurated cut surfaces. The specimen is submitted representatively in cassette A1. (DAC; 01/29/2019) XDC/XDC . 02 Pathologist provided ICD-10: L89.159 . 02 CPT . 938524 Specimen Comment: A courtesy copy of this report has been sent to Specimen Comment: [phone], , . Specimen Comment: Report sent to ,DR ORDAZ / DR JONES Performed at: [address] [id number] MD Geovany Peterson MD Phone: [phone] Performed at: [address] [id number] [address] [address] PATHOLOGY RPT PROCEDURE Name: LJRONALDO Room #: 516-1 ADM IN M.R.#: [id number] ������������������ Admission: 01/29/19 ������������������ Date of : 46 Discharge: Report #: [id number] Path Case #: [id number] MD Jessica Yeager MD Phone: [phone]
--- NOTE | 2019-01-31 16:29 | NUR ---
ASSUMED CARE OF PT AT 0715. PT IS A&X4. IS ON ROOM AIR. REPORTS PAIN IN SACRUM AFTER DRESSING CHANGE. TYLENOL & REPOSITIONING PROVIDED. PT WAS ASLEEP UPON REASSESSMENT. IS STABLE. LADD IN PLACE. COLOSTEMY IN PLACE. HEELS OFF LOADED. DRSG CHANGED. Q2H TURNS. HOURLY ROUNDING & FALL PRECAUTIONS IN PLACE. LABS & VITLALS REVIEWED. FLUIDS ENCOURAGED. PT IS CURRENTLY SLEEPING. CALL LIGHT WITHIN REACH. GRAND-DAUGHTER AT BESIDE. PT REPORTED FEELING "CLOSED IN & REQUESTED ANTI-ANXIETY MEDS". DOCTOR NOTIFIED. ORDER WRITTEN & MED ADMINISTERED. PT REPORTED FEELING BETTER & APPEARED LESS ANXIOUS. WILL CONTINUE TO MONITOR.
[2019-01-31 19:05] VITALS: BP 139/81
--- NOTE | 2019-02-01 03:30 | NUR ---
ASSUMED CARES AT 0700. PT AWAKE, A/O*4. DENIES PAIN. VITALS REMAIN STABLE. PT C/O ACID REFLUX, TUMS ORDERED ADMINISTERED. SACRAL WOUND CLEANED AND DRESSING CHANGED PER ORDER, OLD DRESSING SATURATED WITH YELLOW-RED DRAINAGE. PT REPOSITIONED Q2H. RIGHT FOOT PAINTED WITH BETADINE. NYSTATIN POWDER APPLIED TO SKIN FOLDS AND INTERDRY REMAINS IN PLACE. COLOSTOMY REMAINS INTACT AND PATENT, LARGE AMOUNT OF SOFT STOOL EMPTIED Q2-3H NEEDED. LADD REMAINS INTACT AND PATENT, URINE IS CLEAR, LIGHT YELLOW WITH NO FOUL ODOR. PT AWAKE FROM 1-3AM, ON THE PHONE FOR 3OMINS AT THIS TIME. REPOSITIONED Q2H. Q1H VISUAL CHECKS. CALL LIGHT WITHIN REACH. FALL PRECAUTIONS IN PLACE
[2019-02-01 04:52] LABS: HEMOGLOBIN 8.5 gm/dL (12.0-15.0); MCHC 29.9 g/dL (28.0-37.0); RBC 3.44 mil/uL (4.20-5.00)
[2019-02-01 04:55] LABS: HEMATOCRIT 28.4 % (37.0-47.0); MCH 24.7 pg (26.0-34.0); MCV 82.5 fL (80.0-100.0); RDW 24.5 % (10.5-14.5); WBC 10.4 thou/uL (4.0-11.0)
[2019-02-01 05:15] LABS: CALCIUM 8.9 mg/dL (8.5-10.1); CREATININE 0.6 mg/dL (0.6-1.0); POTASSIUM 5.1 mmol/L (3.5-5.1)
[2019-02-01 08:06] VITALS: BP 116/61
[2019-02-01 08:07] VITALS: BP 116/61
--- NOTE | 2019-02-01 19:13 | NUR ---
ASSUMED CARE AT APPROX 0715. PATIENT A/O X3. ANXIOUS AND FORGETFUL AT TIMES. VSS. C/O PAIN FROM SACRAL WOUND BUT REQUESTS SHE NOT TAKE ANYTHING BUT TYLENOL IT MAKES HER "LOOPY," DISORIENTED AND DROWSY. TYLENOL ADMINSTERED PRIOR TO PT. PATIENT REPORTED SHE FELT SHE DID BETTER WITH MORNING PT SESSION AND PAIN WAS MANAGABLE DURING DRESSING CHANGE. DRESSINGS CHANGED TO SACRUM PER ORDERS. REPOSITIONED IN BED Q2 HOURS. SAT EOB WITH PT. ATTEMPTED STAND WITH ASSIST OF 3 PERSONS. ACCUCHECKS ACHS. PRN XANAX ADMINSITERED APPROX 1400- PATIENT REPORTED FEELING TOO DROWSY FROM THIS MED. PATIENT REQUESTED IT ONLY BE GIVEN AT BEDTIME PRN. BETADINE APPLIED TO LEFT GREAT TOE. LADD TO DD, SECURED. OSTOMY APPLIANCE INTACT, OUTPUTTING MOD AMOUNT SOFT BROWN STOOL. PATIENT MOVED TO ROOM 510 THIS DATE AT HER REQUEST TO BE CLOSER TO NURSES STATION, STATED SHE FELT "ISOLATED" IN FORMER ROOM. FAMILY AT BEDSIDE DURING MOVE. RESTING IN BED AT CHANGE OF SHIFT.
[2019-02-01 19:25] VITALS: BP 125/77
--- NOTE | 2019-02-02 03:41 | NUR ---
TURNED SIDE TO SIDE TO OFFLOAD LARGE SACRAL WOUND. LADD TO DD, SOFT BROWN STOOL THROUGH COLOSTOMY, PATIENT TOLERATING PO LIQUIDS AND SMALL SNACK OF PEANUT BUTTER AND JENNIFER CRACKERS. LANTUS 25 UNITS GIVEN AT HS. OVERNIGHT VISITOR ARRIVED AT 2200 HOUR. PATIENT FELL ASLEEP BRIEFLY AFTER GIVEN MELATONIN EARLIER, ASKED OF XANAX AT 0100, BUT PLEASE ONLY HALF A DOSE. BACK TO SLEEP AN HOUR AND AGAIN NOW AFTER ANOTHER TURN TO SIDE WHEN SHE SPONTANEOUSLY AND BRIEFLY AWOKE.
[2019-02-02 08:55] VITALS: BP 106/59
[2019-02-02 19:44] VITALS: BP 117/59
--- NOTE | 2019-02-03 02:31 | NUR ---
PATIENT ASSESSED AFTER THIS NURSE COMING ON SHIFT AROUND 1930. HER SACRAL DSG IS DRY AND INTACT. SCD'S ON AND WORKING. GLUCOSE AT 2100 AT 115. LANTUS 25U GIVEN. VSS. AFEBRILE. PATIENT REQUESTED TYLENOL 650MG AND MELATONIN 10MG TO HELP HER SLEEP TONIGHT. PATIENT IS BEING TURNED EVERY 2 HOURS. PATIENT GIVEN APPLE JUICE FOR HS SNACK PER REQUEST. PATIENT HAS 2+PEDAL EDEMA BILAT BUT PULSES GOOD AT 2+. SHE CONTINUES TO USE LOW AIRLOSS MATTRESS. LADD CATHETER INTACT AND URINE APPEARS CLEAR LIGHT YELLOW. COLOSTOMY DSG INTACT AND PATENT. PATIENT TO HAVE A WOUND VAC PLACED TO SACRAL DECUBE WOUND TODAY. PATIENT IS ABLE TO ASSIST SOME ON TURNING. SHE IS REFUSING PILLOWS UNDER HEELS AND REFUSING BOOTS. NO BREAKDOWN SHOWING ON HEELS AT THIS TIME. ENCOURAGED PATIENT TO MOVE HER FEET AROUND AND CHANGE FOOT POSITION SINCE REFUSING OTHER DEVICES. FAN TURNED ON PER PATIENT REQUEST TO HELP VENTILATE ROOM AND HELP PATIENT SLEEP. CONTINUING TO MONITOR AND 1 HOUR ROUNDS.
[2019-02-03 08:00] VITALS: BP 116/64
--- NOTE | 2019-02-03 11:40 | NUR ---
ASSUMED CARE AT 0700. PATIENT IS ALERT AND ORIENTED X4. PATIENT LIRA'S. LEGS ARE WEAK BILATERALLY. LUNGS ARE CLEAR. ABD IS SOFT WITH BSX4. PATIENT HAS COLOSTOMY AND HAS STOOL FROM HER RECTUM. PATIENT IS INCONTINENT OF STOOL. PATIENT HAS LADD TO DD, DRAINING NISHANT COLORED URINE. PATIENT HAS EXTRA LARGE COCCYX WOUND. PATIENT IS ON WET TO DRY DRESSINGS WITH DAKINS SOLUTION UNTIL WOUND VAC PLACED. PATIENT IS TURN Q 2 HOURS. PATIENT BS 49 THIS AM. JUICE GIVEN. PATIENT 113 AFTER 20 MIN. FALL AND SAFETY PROTOCOLS IN PLACE. C/O BACK PAIN. REFUSED MEDS. REPOSITIONED. CONTINUES TO PROGESS VERY SLOWLY TOWARDS D/C GOALS. WILL CONTINUE TO MONITER.
--- NOTE | 2019-02-03 15:15 | NUR ---
OSTOMY CARE; pouch on x5 days, changed using 2 piece system kiersten, adapt ring applied under wafer, loop stoma pink viable slightly budded, peristomal skin intact, loose brown stool noted, granddaughter at bs, both receptive to education, encouraged to participate in ostomy care, supplies and infor at bs, will cont to follow prn
--- NOTE | 2019-02-03 15:22 | NUR ---
WOUND CARE FOLLOW UP; ROUNDING WITH DR MCQUEEN AND EMI TRAIN MASTER. THE SACRAL WOUND WAS S/P SURGICAL DEBRIDEMENT. THE WOUND BED IS 98% FREE OF NECROSIS TODAY. NO ODOR FROM THE WOUND BED. BONE IS EXPOSED IN THE WOUND BED. RECOMMENDATION; APPLY VAC THERAPY. DISCUSSED WITH OBIE
[2019-02-03 19:05] VITALS: BP 130/93
--- NOTE | 2019-02-04 05:39 | NUR ---
CONTINUOUS WOUND VAC TO SACRAL WOUND. PATIENT TURNED SIDE TO SIDE Q2H, SLEPT WELL WITH ONLY REMERON AND GABAPENTIN AT HS (NO MELATONIN) BM THROUGH RECTUM WELL COLOSTOMY. LADD TO DD DRAINING YELLOW URINE
[2019-02-04 08:05] VITALS: BP 89/45
--- NOTE | 2019-02-04 10:21 | NUR ---
ASSUMED CARE AT 0700. PATIENT IS ALERT AND ORIENTED X4. PATIENT LIRA'S, BUT LOWER EXTREMITIES ARE VERY WEAK. LUNGS ARE CLEAR. ABD IS SOFT WITH BSX4. PATIENT HAS COLOSTOMY AND CONTINUES TO LEAK FROM HER ANUS. PATIENT HAS LADD TO DD, DRAINING NISHANT COLORED URINE. FALL AND SAFETY PROTOCOLS IN PLACE. DENIES PAIN AT THIS TIME. UP IN BED FOR MEALS. CONTINUES TO PROGESS SLOWLY TOWARDS D/C GOALS. WILL CONTINUE TO MONITER.
--- NOTE | 2019-02-04 13:23 | NUR ---
team meeting recommendation: pt has wound vac in placed yesterday. re team, ask family about wheel chair and ramp. she might need costume wheel chair and will needs wound care at home.
[2019-02-04 19:05] VITALS: BP 126/60
--- NOTE | 2019-02-05 04:32 | NUR ---
TURNED Q2H, WOUND VAC TO LARGE SACRAL WOUND, LADD TO DD. RESTING WELL TONIGHT WITHOUT TAKING MELATONIN OR XANAX. OVERNIGHT VISITOR AT BEDSIDE, BED ALARM ON.
[2019-02-05 08:00] VITALS: BP 124/75
--- NOTE | 2019-02-05 18:31 | NUR ---
ASSUMED CARES AT 0700. PT AWAKE, ALERT AND ORIENTED *4. C/O MILD PAIN AROUND THE SACRAL WOUND, REPOSITIONED Q2H AND WEIGHT OFF THE WOUND. WOUND VAC CHANGED, SITE CLEANED AND PICTURES TAKEN, NEW WOUND VAC IN PLACE. COLOSTOMY REMAINS INTACT AND PATENT, STOOL IS LOOSE AND BROWN. LADD REMAINS INTACT AND PATENT, URINE IS DARK YELLOW CLEAR. PT UP WITH 2 MAX ASSIST TRANSFERS TO BED, FEARFUL AND ANXIOUS ABOUT FALLING. Q1H VISUAL CHECKS. CALL LIGHT WITHIN REACH. FALL PRECAUTIONS IN PLACE
[2019-02-05 19:32] VITALS: BP 102/60
--- NOTE | 2019-02-06 03:36 | NUR ---
assumed care at approx 1900 evening 02/04. pt lying in bed with head of bed elevated resting and visiting with family at bedside. pt alert and oriented x4, appropriate and cooperative. colostomy intact with small amt loose stool in bag. wound vac in place functioning properly. pt assisted into gown at hs and took hs meds with no problems. pt appears to be sleeping soundly with hourly rounding checks. bed alarm on and call light in reach. will continue to monitor.
[2019-02-06 08:08] VITALS: BP 99/65
--- NOTE | 2019-02-06 11:10 | NUR ---
OSTOMY CARE pouch on 4 days, changed today greg/ kiersten 2piece system, adapt ring applied under wafer, loop stoma, pink viable slightly budded, soft mushy brown stool noted, peristomal skin intact, states no stool per rectum yesterday, very receptive to education, encouraged participation in care especially emptying appliance, dc secure kit ordered for pt, will cont to follow prn
[2019-02-06 11:52] VITALS: BP 113/69
--- NOTE | 2019-02-06 11:57 | NUR ---
ASSUMED CARES AT 0700. PT AWAKE, ALERT AND ORIENTED*4. C/O MILD PAIN AROUND HER WOUND, REPOSITIONED Q2H. BP LOW 99/65, ENCOURAGED FLUID INTAKE, WILL CONTINUE TO MONITOR. ALL OTHER VITALS REMAIN STABLE. SACRAL WOUND VAC REMAINS INTACT AND DRAIN REMAINS PATENT, RED COLORED DRAINAGE ON COLLECTION CHAMBER. COLOSTOMY BAG CHANGED TODAY BY COLOSTOMY RN, SITE IS WNL, STOOL OUTPUT WNL FOR THIS PT. LADD REMAINS INTACT AND PATENT, LIGHT YELLOW CLEAR URINE. ABDOMEN REMAINS DISTENDED, BS ACTIVE*4, DENIES N&V. SKIN TEAR NOTED IN RIGHT INNER THIGH, DRESSING CHANGED. UP WITH 2MOD ASSIST PIVOT TRANSFERS AND TOLERATED WELL. Q1H VISUAL CHECKS. CALL LIGHT WITHIN REACH. FALL PRECAUTIONS IN PLACE
[2019-02-06 21:19] VITALS: BP 118/67
--- NOTE | 2019-02-07 03:39 | NUR ---
TURNED Q2H, WOUND VAC AT 125, LOW AIR LOSS MATRESS THERAPY. LANTUS INSULIN 15 UNITS AT HS WITH BLOOD SUGAR = 201 AT THAT TIME. LADD AND COLOSTOMY PATENT, ABDOMEN DISTENDED. OPTIFOAM INTACT OVER RIGHT THIGHSKIN TEAR.
[2019-02-07 05:41] LABS: HEMATOCRIT 25.9 % (37.0-47.0); HEMOGLOBIN 7.9 gm/dL (12.0-15.0); MCH 24.9 pg (26.0-34.0); MCHC 30.7 g/dL (28.0-37.0); MCV 81.2 fL (80.0-100.0); PLATELET COUNT 401 thou/uL (150-400); RBC 3.19 mil/uL (4.20-5.00); RDW 27.2 % (10.5-14.5); WBC 9.8 thou/uL (4.0-11.0)
[2019-02-07 05:58] LABS: CALCIUM 8.8 mg/dL (8.5-10.1); CREATININE 0.8 mg/dL (0.6-1.0); MAGNESIUM 1.9 mg/dL (1.8-2.4); POTASSIUM 4.7 mmol/L (3.5-5.1)
[2019-02-07 06:24] LABS: ABSOLUTE NEUTROPHILS 6.5 thou/uL (1.4-8.2)
[2019-02-07 06:25] LABS: ANISOCYTOSIS 3+; PLATELET ESTIMATE INCREASED; POIKILOCYTOSIS 2+; POLYCHROMASIA 1+
[2019-02-07 07:30] VITALS: BP 114/70
--- NOTE | 2019-02-07 13:52 | NUR ---
Nutrition f/u: Intake avg 50% or less. Receiving Ensure and Matthew at least BID, with intake 75% or more avg. B-201, CO2 35, BUn 34, no recent albumin. Continues w/ sacral wound, wound vac, diverting colostomy. Last wt on 01/28 was 221 lb which is significantly out of range with prior wt's. Pt at mild nutrition risk, continue POC. RECOMMNED OBTAIN AND RECORD CURRENT WT.
--- NOTE | 2019-02-07 18:35 | NUR ---
ASSUMED CARE OF PT AT 0715. PT IS A&OX4 AND VITAL SIGNS ARE STABLE. BLOOD GLUCOSE MONITORIED ACHS AND MANAGED WITH INSULIN. WOUND VAC TO SACRUM IS C/D/I AND RUNNING APPROPRIATELY. PT TURNED IN BED Q2H, LOW AIRLOSS BED, PROTEIN AND FLUID INTAKE ENCOURAGED, COLOSTOMY DRAINING LOOSE BROWN STOOL AND EMPTIED PRN, LADD CATHETER IN PLACE AND DRAINING APPROPRIATELY. LEFT GREAT TOE CLEANED WITH BETADINE, SKIN TEAR TO RIGHT INNNER THIGH CLEANED WITH SALINE AND DRESSED WITH OPTIFOAM DRESSING. PT TOLERATED MEDICAITONS PO WHOLE WITH WATER. PT REPORTED NAUSEA AROUND 1200 AND PROVIDER GAVE ORDER FOR ZOFRAN 4MG PO Q6H, PATIENT REFUSED WHEN OFFERED MEDICATION. PROVIDER REVIEWED LAB RESULTS. FALL PRECAUTIONS IN PLACE AND NURSING WILL CONTINUE TO MONITOR.
[2019-02-07 19:25] VITALS: BP 105/58
--- NOTE | 2019-02-08 03:03 | NUR ---
assumed care at approx 1900 evening 02/07. pt lying in bed at change of shift resting. pt alert and oriented x4, appropriate and cooperative. colostomy in place intact with loose stool. carrasquillo to dd with clear yellow urine to bag. pt took hs meds with water tolerating well. pt appears to be sleeping soundly with hourly rounding checks. bed alarm on and call light in reach.will continue to monitor.
[2019-02-08 07:36] VITALS: BP 111/67
--- NOTE | 2019-02-08 12:28 | NUR ---
ASSUMED CARES AT 0700. PT ALERT AND ORIENTED*4. DENIES PAIN. C/O NAUSEA ANYTIME SHE SMELLS FOOD. ABDOMEN IS DISTENDED, SOFT WITH HYPOACTIVE BS. COLOSTOMY REMAINS INTACT AND PATENT WITH MODERATE AMOUNT OF LOOSE STOOLS, NO FLATUS. HOSPITALIST NOTIFIED, AWAITING CALL BACK. LADD REMAINS INTACT AND PATENT, URINE IS LIGHT YELLOW AND CLEAR WITH NO FOUL ODOR. WOUND VAC REMAINS INTACT AND PATENT, DRAINAGE IS SEROUSSANGUINOUS. REFUSED TO GET UP FOR MEALS AND HAD ALL MEALS IN BED. EATING VERY LITTLE FOR MEALS. UP WITH MAX ASSIST TRANSFERS. Q1H VISUAL CHECKS. CALL LIGHT WITHIN REACH. FALL PRECAUTIONS IN PLACE
--- NOTE | 2019-02-08 14:34 | HC ---
[facility] [place] [address] CONSULTATION Name: RONALDO ACEVEDO Room #: 510-P ADM IN M.R.#: [id number] Admission: 01/29/19 ������������������ Attend Phys: Tacho Rizvi MD Discharge: ������������������ Date of : 47 Report #: [id number] THIS REPORT FOR: //name// CC: Tacho Mary DATE OF SERVICE: 02/02/2019 NEUROBEHAVIORAL STATUS EXAMINATION ATTENDING PHYSICIAN: Tacho Rizvi MD HOTEL CUSTODIAN: Narayan Huggins, PhD CLINICAL PRESENTATION: The patient is a 73-year-old female admitted initially to the hospital on 01/17/2019 with incomplete paraparesis. The patient had undergone surgery at [facility] and was experiencing significant lower extremity weakness. She is reported to have had a nonhealing stage 4 sacral ulcer with chronic fecal contamination. She underwent an elective laparoscopic diverting colostomy with wound debridement on 01/25/2019 and further excisional debridement of the skin and subcutaneous tissue, muscle and bone of the stage 4 sacral decubitus wound with necrosis. She presented with a lower extremity paraparesis. Her assessment on the rehabilitation unit was an incomplete paraparesis, sacral pressure ulcer stage 4, status post excisional debridement, status post elective laparoscopic diverting colostomy with wound debridement, insulin-dependent diabetes mellitus with prior history of peripheral neuropathy, bilateral intrinsic weakness, right greater than left; hypertension, cardiac stents and protein calorie malnutrition. A complete description of her medical condition and history can be found in her medical records. Neuropsychological consultation was requested to provide assistance in the assessment of cognitive and emotional status and to provide recommendations and services. Prior to this most recent admission, she was living with the assistance of her daughter and son-in-law in their home. She is reported to have been independent with instrumental activities of daily living that included cooking, managing medication and finances. The patient discontinued driving because of neuropathy. Her daughter indicates she was mobile using a walker. The patient has 4 children. She was primarily a homemaker throughout her life. Her last grade completed in school was tenth. TECHNIQUES UTILIZED: Clinical interview, review of medical records, staff consultation and behavioral observation, mini mental status exam 2 standard version and family interview -- daughter. [facility] [address] [place] [address] CONSULTATION Name: RONALDO ACEVEDO Room #: 510-P [facility] IN M.R.#: [id number] Admission: 01/29/19 ������������������ Attend Phys: Tacho Rizvi MD Discharge: ������������������ Date of : 47 Report #: [id number] EXAMINATION FINDINGS: The patient was alert and cooperative with the assessment. She accurately described events surrounding her hospitalization; however, she was somewhat vague in her ability to identify the problems that she has been experiencing. Symptoms are reported to include sleep disturbance, poor appetite, tiredness and fatigue, subjective depression and anxiety. She does not report difficulty with memory, but difficulty with word finding is reported. Her daughter indicates that they have been giving her Xanax at times. The patient and the daughter indicated that the Xanax was overly sedating. Her performance on the MMSE 2 brief version was in the borderline range with a raw score of 12/16, T score at 33, percentile rank of 4. She was 1/3 for initial registration. Difficulty with auditory comprehension is suggested. Multiple repetitions were required in order for her to adequately register 3 items. She was 4/5 for orientation to time and 5/[address] She was 2/3 for immediate recall of 3 items after a brief time delay and distraction. Overall, performance was in the borderline range with a raw score of 12 and a T score of 33, which is at the fourth percentile. Her performance on the MMSE 2 standard version deteriorated to a raw score of 19/30, T score of 27 and percentile rank of 1. She was 0/5 for serial sevens, 2/2 for naming, 1/1 for repetition, 3/3 for auditory comprehension and 1/1 for being able to read and follow single command. The patient was unable to accurately write a sentence or accurately copy a simple geometric design. The patient is presenting with symptoms consistent with depression as well as a mild to moderate neurocognitive disorder. Difficulty with initial registration of information likely associated with variability in attention and concentration are contributing to her performance. Visual spatial constructive deficits are noted. 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 Adjustment disorder with depressed mood. RECOMMENDATIONS: The patient will benefit from the use of an antidepressant, example Remeron at bedtime. She is having both difficulty with sleep and poor appetite. She has been taking Xanax on a p.r.n. basis since her admission; but describes it as overly sedating. The use of distraction can assist at times in the management of pain. Verbal praise and complements about participation in therapies will be of benefit along with the use of relaxation techniques to assist in the management of anxiety. Verbal praise and complements about participation in therapies will [address] [address] CONSULTATION Name: RONALDO ACEVEDO Room #: 510-P ADM IN M.R.#: [id number] Admission: 01/29/19 ������������������ Attend Phys: Tacho Rizvi MD Discharge: ������������������ Date of : 47 Report #: [id number] also assist in maintaining compliance. Emphasizing goals that she has attained during therapies will also improve self-confidence. Thank you very much for allowing me to provide the consultation on this patient. ��������������������������������������������� <ELECTRONICALLY SIGNED> ���������������������������������������� By: Narayan Huggins, PhD ��������������������������������������������� 02/08/19 [id number] Narayan Huggins, PhD /nt
[2019-02-08 19:59] VITALS: BP 105/74
--- NOTE | 2019-02-09 01:33 | NUR ---
assumed care at approx 1900 evening 02/08. pt alert and oriented x4, appropriate and cooperative. carrasquillo to dd with clear yellow urine to bag. colostomy in place intact with loose liquid stool. pt took hs meds with water tolerating well. pt appears to be sleeping soundly with hourly rounding checks. bed alarm on and call light in reach. will continue to monitor.
[2019-02-09 07:47] VITALS: BP 103/67
--- NOTE | 2019-02-09 14:09 | NUR ---
ASSUMED CARES AT 0700. PT AWAKE, ALERT AND ORIENTED*4. DENIES PAIN. VITALS STABLE. HS STABLE, 2/2 PULSES. LS CLEAR AND DIMINISHED IN THE BASES. ABDOMEN SOFT BUT DISTENDED, PT DENIES N&V, COLOSTOMY REMAINS INTACT AND PATENT, STOOL IS LOOSE. LADD REMAINS INTACT AND PATENT, URINE IS LIGHT YELLOW AND CLEAR. WOUND VAC REMAINS INTACT AND PATENT, OUTPUT REMAINS SEROSANGUINOUS. PT REPOSITIONED Q2H, HAD MEALS IN BED TODAY. UP WITH THERAPY SITTING ON THE EDGE OF BED AND DID SOME EXERCISES, TOLERATED WELL. Q1H VISUAL CHECKS. CALL LIGHT WITHIN REACH. FALL PRECAUTIONS IN PLACE
[2019-02-09 19:30] VITALS: BP 98/60
--- NOTE | 2019-02-10 03:32 | NUR ---
TOOK MELATONIN AT HS, SLEEPING WELL BETWEEN TURNS. WOUND VAC PATENT, LADD TO DD, DRINKING SIPS OF FLUIDS AND TAKING MEDS WHOLE. LOW AIR LOSS THERAPY CONTINUES
[2019-02-10 08:50] VITALS: BP 91/53
--- NOTE | 2019-02-10 10:13 | NUR ---
Ostomy care; pouch on x4 days, changed using kiersten 2 piece system w/ adapt ring, loop colostomy pink viable slightly budded,peristomal skin intact, granddaughter at bs, both receptive to education, pt still unable to empty appliance on own, strongly encouraged participation in ostomy management, supplies and info at bs, will cont to follow
--- NOTE | 2019-02-10 19:05 | NUR ---
PATIENT ALERT AND ORIENTED WITH GRAND DAUGHTER AT BEDSIDE MOST OF THE DAY. PATIENT PARTICIPATES IN REHAB. TRANSFERRED WITH THERAPIST TO [facility] W/C. WOUND VAC CHANGED BY WOUND NURSE TODAY. NOT MUCH OUTPUT TO COLOSTOMY TODAY. OSTOMY NURSE VISIT AND ENCOURAGE PATIENT TO PARTICIPATE IN CARE OF COLOSTOMY.
[2019-02-10 19:10] VITALS: BP 90/49
--- NOTE | 2019-02-11 00:06 | NUR ---
PT LYING IN BED. TYLENOL GIVEN FOR BACK PAIN. PER INSTRUCTION NEW WHEEL CHAIR CHARGING. RESTING COMFORTABLY. NO NEEDS VOICED. CALL LIGHT WITHIN REACH. WILL CONTINUE TO PROVIDE FREQUENT OBSERVATION.
--- NOTE | 2019-02-11 05:31 | NUR ---
TOLERATING TURNS TO SIDE, WOUND VAC CONTINUOUS AT 125, LOW AIR LOSS MATTRESS THERAPY CONTINUES. TYLENOL FOR RIGHT BACK PAIN, DOES NOT WANT TO USE TRAMADOL AND ALSO DID NOT USE MELATONIN LAST EVENING.
[2019-02-11 08:10] VITALS: BP 113/63
--- NOTE | 2019-02-11 12:26 | NUR ---
team meeting, recommendation: cont with dc on with hh ( pt,ot,st, nursing, bath aid and sw). has loaner/rented power chair. family training 22 at 9am. will cont following as needed for dcp needs. grand daughter has already had training with ostomy care while here for visit.
[2019-02-11 19:05] VITALS: BP 127/74
--- NOTE | 2019-02-11 20:02 | NUR ---
PATIENT ALERT AND ORIENTED AND COOPERATIVE WITH PLAN OF CARE WITH GRANDDAUGHTER AT BEDSIDE MOST OF THE DAY. NO COMPLAINTS OF PAIN EXCEPT INNER RIGHT THIGH B/C OF POSITION IN CHAIR. REAJUSTED AND PATIENT OK. PATIENT TILTING IN CHAIR FOR PRESSURE RELEIF.
--- NOTE | 2019-02-12 04:08 | NUR ---
TURNED SIDE TO SIDE EVERY 2 HOURS AND/OR BY PATIENT REQUEST, WOUND VAC AT 125, AND LOW AIR LOSS MATTRESS THERAPY
--- NOTE | 2019-02-12 11:18 | NUR ---
program services planner sent hh referral to [facility] ([facility]), patient to nh home 02/18. will need wound care with wound vac.
--- NOTE | 2019-02-12 15:17 | NUR ---
cm visited with pt rt transportation home and into house. cm education that could sent up transportation to get her home and in house but she would still need family to be able to get her out of house for appointment. education that can rent a tempora ramp with home medical supply [phone]. pt [employer] loaner wheel chair will go home with her and then custom wheel chair will be delivered to pt home after dc. cm left message for daughter aisha rt dcp and requested call back. cm spoke with grand-daughter at bedside and provided information and number to home medical rt rent ramp. passed on information to beside nurse and real estate sales supervisor pt concerns rt having bm per rectum.
--- NOTE | 2019-02-12 15:55 | NUR ---
DR. PAINTING'S OFFICE NOTIFIED OF RESIDENT'S CONTINUAL STOOL INCONTINENCE FROM HER ANUS. PATIENT HAS COLOSTOMY IN PLACE FOR STOOL DIVERSION R/T HER COCCYX WOUND. PATIENT CURRENTLY HAS WOUND VAC IN PLACE FOR WOUND HEALING, BUT THE MODERATE STOOLS FROM HER ANUS IS SOILING THE WOUND VAC DRESSING, WHICH IS HINDERING THE EFFECTIVENESS OF THE WOUND VAC.
--- NOTE | 2019-02-12 17:58 | NUR ---
ASSUMED CARE OF PATIENT AT 0715, PATIENT ALERT AND ORIENTED X 4. PATIENT DENIES PAIN THIS SHIFT. PATIENT HAS COLOSTOMY IN PLACE WITH MODERATE AMT. OF LIQUID STOOL NOTED IN BAG, DR ORDAZ WANTED TO NOTIFIED DR CASTRO OF PATIENT HAVING STOOLS FROM HER RECTUM, WHICH CAN AFFECT THE WOUND VAC IN PLACE OVER SACRUM WOUND. CALLED WAS PLACE BY DON/RN TO DR CASTRO'S OFFICE, RETURN CALL FROM NIKKIE/AIRCRAFT WORKER. RECEIVED ORDER TO GIVE FLEETS ENEMA, AND THAT MARY JANE/OSTOMY NURSE WITH EVALUATE PATIENT TOMORROW, AND MAY NEED TO FLUSH STOMA AREA. FLEETS ENEMA GIVEN WITH NO RESULTS. PATIENT WAS UP TO THE WHEELCHAIR PER PHYSICAL THERAPY AND STAYED IN THE CHAIR UNTIL AFTER LUNCH. PATIENT HAS LADD CATHETER IN PLACE, AND REMAINS PATENT. WILL CONTINUE TO MONITOR.
[2019-02-12 19:15] VITALS: BP 105/62
--- NOTE | 2019-02-13 03:18 | NUR ---
assumed care at approx 1900 evening 02/12. pt visiting with family at bedside at change of shift. pt alert and oriented x4, appropriate and cooperative. colostomy in place intact with liquid stool to bag. pt also incontinent of liquid stool tonight requiring assistance with changing pad and gown. pt took hs meds with water tolerating well. wound vac in place functioning properly. scds on. carrasquillo to dd with yellow urine to bag. bed alarm on and call light in reach. will continue to monitor.
--- NOTE | 2019-02-13 08:23 | NUR ---
Nutrition reassessment: visit during breakfast, pt voicing good appetite and likes to drink Ensure Max and Matthew. No new wt since 01/28 which was an inaccurate wt based on other wt patterns. Nursing has zeroed bedscale and will reweigh today once pt back in bed. Low nutrition risk
--- NOTE | 2019-02-13 11:21 | NUR ---
ostomy care; According to pt and nsg staff pt passed loose rectal stool 3x yesterday, pt states some days no stool rectally other days small amt loose stool, large amt stool loose in pouch, irrigated distal portion loop stoma w/ red alcala cath and ~300cc ns, no stool yet per rectum, nsg staff gave pt fleets per rectum last tara, no stool noted from enema. explained to pt loop stoma and maybe some seepage from distal stoma into proximal, new pouch kiersten 2 piece system applied w/ adapt ring under wafer, peristomal skin intact, stoma pink viable and slightly budded, granddaughter in room, both receptive to education, supplies and info in room, will cont to follow, will inform DR CASTRO of irrigation receptive to education, info and
--- NOTE | 2019-02-13 12:05 | NUR ---
Following for d/c planning needs. PT said pt may benefit from ahmet lift for home use. Asked kit planner to fax referral to [facility] to see if insurance would provide coverage for ahmet for home use. Will remain available to assist as needed.
--- NOTE | 2019-02-13 12:50 | NUR ---
DISCHARGE PLANNING. ANTICIPATED DISCHARGE TO HOME 02/18 PER UNIT GUITAR TEACHER. VIVIENNE LIFT RECOMMENDED FOR HOME USE. REFERRAL FAXED TO [facility], VERIFIED RECEIVED. [facility]IBHA TO FACILIATE VIVIENNE NEEDS ONCE REFERRAL HAS BEEN REVIEWED AND AUTH OBTAINED. FOLLOWING TO ASSIST WITH DISCHARGE NEEDS.
[2019-02-13 19:29] VITALS: BP 95/60
--- NOTE | 2019-02-13 20:15 | NUR ---
ASSUMED CARE OF PT AT 0715. PT IS A&OX4 AND VITAL SIGNS ARE STABLE. PT DENIES PAIN AND PARTICIPATED IN SCHEDULED THERAPIES. PT UP WITH PT ONLY. PT TOLERATED PO MEDICAITONS WHOLE WITH THIN LIQUIDS. LADD CATHETER DRAINING APPROPRIATELY AND SECURED TO LEG APPROPRIATELY. COLOSTOMY DRAINING MODERATE AMOUNTS OF BROWN SOFT STOOL, STOMA APPEARANCE WNL, DRAINAGE BAG SYSTEM IN PLACE AND EMPTIED NEEDED. PT REPORTS CONTINUED RECTAL STOOL DURING OUTSIDE PLANT CABLE ENGINEER AND HAD ANOTHER AT SHIFT CHANGE TODAY, COLOSTOMY NURSE AND SURGEON MADE AWARE. COLOSTOMY NURSE FLUSHED DISTAL END OF COLOSTOMY LOOP THIS SHIFT AND REPORTS THAT THE CAUSE OF CONTINUED RECTAL STOOLS IS LIKELY DUE TO STOOL ENTERING THE OPENING TO THE DISTAL END OF LOOP FROM COLOSTOMY BAG. NO FURTHER ORDERS AT THIS TIME. WOUND VAC DRESSING C/D/I, DRAINING APPROPRAITELY. FALL PRECAUTIONS IN PLACE AND NURSING WILL CONTINUE TO MONITOR PT.
--- NOTE | 2019-02-14 03:58 | NUR ---
TOLERATING WOUND VAC AT 125, TURNS Q2H OR MORE OFTEN IF PATIENT REQUESTS. LADD TO DD WITH YELLOW URINE, LOOSE STOOL THROUGH COLOSTOMY, SMALL BROWN MUCOUS STOOL THROUGH RECTUM. PATIENT DECLINES TYLENOL AND MELATONIN AT HS.
[2019-02-14 05:43] LABS: ABSOLUTE NEUTROPHILS 8.4 thou/uL (1.4-8.2); BASOPHILS 0.4 % (0.0-2.0); EOSINOPHILS 1.5 % (0.0-3.0); HEMATOCRIT 26.1 % (37.0-47.0); HEMOGLOBIN 7.8 gm/dL (12.0-15.0); LYMPHOCYTES 14.8 % (24.0-44.0); MCH 24.5 pg (26.0-34.0); MCV 81.5 fL (80.0-100.0); MONOCYTES 9.6 % (1.0-8.0); PLATELET COUNT 401 thou/uL (150-400); POLYS 73.7 % (36.0-66.0); RDW 26.2 % (10.5-14.5); WBC 11.4 thou/uL (4.0-11.0)
[2019-02-14 05:52] LABS: CALCIUM 9.1 mg/dL (8.5-10.1); CREATININE 0.9 mg/dL (0.6-1.0); MAGNESIUM 2.2 mg/dL (1.8-2.4); POTASSIUM 4.2 mmol/L (3.5-5.1)
[2019-02-14 08:00] VITALS: BP 97/54
--- NOTE | 2019-02-14 10:22 | NUR ---
WOUND CARE FOLLOW UP; MAURO DIRECTOR OF MAINTENANCE AND EMI ROLL HAND HERE TO ASSESS THE SACRAL WOUND. THE WOUND CONTINUES TO IMPROVE, GRANULATION TISSUE NOTED. NO S/S OF INFECTION NOTED. RECOMMENDATION; CONTINUE PLAN OF CARE. DISCUSSED WITH RN
--- NOTE | 2019-02-14 14:35 | H ---
[facility] [place] [address] HISTORY AND PHYSICAL Name: RONALDO ACEVEDO Room #: 510-P ADM IN M.R.#: [id number] Admission: 01/29/19 ������������������ Attend Phys: Tacho Rizvi MD Discharge: ������������������ Date of : 47 Report #: [id number] THIS REPORT FOR: //name// CC: Tacho Mary DATE OF SERVICE: 01/29/2019 HISTORY AND PHYSICAL/POST-ADMISSION PHYSICIAN EVALUATION HISTORY OF PRESENT ILLNESS: The patient is a 73-year-old -[place] female who was originally admitted on 01/17/2019 with incomplete paraparesis. She apparently had surgery on a cyst over at [facility] approximately 2 months ago and has had significant lower extremity weakness, dense paraparesis. She had some skilled level therapies and then has been home with her family. 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 She also underwent further excisional debridement of skin, subcutaneous tissue, muscle, and bone of a stage 4 sacral decubitus wound with necrosis. The patient is being followed by wound care. She does have dense lower extremity paresis, but has been able to work on basic bed mobility and even some limited transfers. We are admitting her to the acute in-hospital inpatient rehabilitation [facility] to further work on improving her strength, endurance, transfers, and ADLs with the goal of returning her back home with family care. Wound care will be following on the acute inpatient rehab stewart as well as multiple business process consultant physicians. PAST MEDICAL HISTORY: Includes insulin-dependent diabetes mellitus with history of peripheral neuropathy, history of cardiac stents, hypertension, and malnutrition. MEDICATIONS: Please see the full medication listing. ALLERGIES: No known drug allergies. SOCIAL HISTORY: She has been living with her family the past month. This is a house with several adult children, one step to get in. She notes she does have someone there all the time. Son will utilize a gait belt and assist her with transfers and they have been utilizing squat pivot transfers into the wheelchair in the past couple of weeks. REVIEW OF SYSTEMS: No current complaints of chest pain, shortness of breath, and abdominal discomfort. PHYSICAL EXAMINATION: [address] [address] HISTORY AND PHYSICAL Name: RONALDO ACEVEDO Room #: 510-P [facility] IN M.R.#: [id number] Admission: 01/29/19 ������������������ Attend Phys: Tacho Rizvi MD Discharge: ������������������ Date of : 46 Report #: [id number] GENERAL: A 73-year-old -[place] female who was seen earlier, was in no distress. The patient was alert, pleasant, follows basic commands. VITAL SIGNS: Temperature 36.9, pulse 79, respirations 22, and blood pressure 122/70. HEENT: Facies appeared symmetric. CHEST: Sounded clear to auscultation. CARDIOVASCULAR: Regular rate and rhythm. ABDOMEN: She does have the ostomy in place. She has a catheter in place. GENITOURINARY AND RECTAL: Deferred. EXTREMITIES: I did examine her wound and it is a very large excisional deep stage 4 wound over her sacral area. See wound care for measurements, etc. She has functional range of motion of both upper extremities. Strength is grade 3+ to 4-/5. She does have some weak and intrinsic strength in both hands, right greater than the left. DTRs are 1. In her lower extremities, she has strength at least a grade 3-/5 both lower extremities. DTRs are trace. Sensation, there is some sensation to simultaneous stimulation both lower extremities. She has definite decreased sensation in bilateral large toes. Functionally, she has been mod assist, sit to supine, assist with sit to stand. Toilet transfers have been dependent. She does have the dressing over her buttock wound. She has a colostomy and has an indwelling Smith catheter as noted above. ASSESSMENT: A 73-year-old -[place] female with the following problem list: 1. Incomplete paraparesis. 2. Sacral pressure ulcer stage 4, now status post excisional debridement. 3. Status post elective laparoscopic diverting colostomy with wound debridement on 01/17/2019. 4. Insulin-dependent diabetes mellitus with prior history of peripheral neuropathy. She does have bilateral hand intrinsic weakness, right greater than left. 5. Hypertension. 6. Cardiac stents. 7. Protein-calorie malnutrition. PLAN: The patient is admitted for acute in-hospital inpatient rehabilitation. From a postadmission physician evaluation perspective, there are no relevant changes since the preadmission screening. Please see the previous and current functional status. As far as risk of complications, see the multiple medical comorbidities as noted above. Initial plan of care involves the interdisciplinary acute inpatient rehabilitation program. We will maximize the patient's functional independence, so she can hopefully return back to her prior living situation. We need to work on basic transfers with mobility and ADLs, so that she can achieve a level where her family can care for her again. Prognosis is reasonably good with estimated length of stay probably 2 weeks, potentially longer if warranted. Potential barriers would include her multiple medical comorbidities and decreased functional status. [facility] [address] [place] [address] HISTORY AND PHYSICAL Name: RONALDO ACEVEDO Room #: 510-P ADM IN ..#: [id number] Admission: 01/29/19 ������������������ Attend Phys: Tacho Rizvi MD Discharge: ������������������ Date of : 46 Report #: [id number] The patient meets diagnostic criteria for an acute in-hospital inpatient rehabilitation stay. She meets the medical necessity criteria and we will have the business process consultant physicians continue to follow up. She does have wound care that will be involved. She does have the tolerance for therapies and has appropriate discharge goals back to the home setting. ��������������������������������������������� <ELECTRONICALLY SIGNED> ���������������������������������������� By: Tacho Rizvi MD ��������������������������������������������� 02/14/19 1435 [id number] Tacho Rizvi MD /[facility]
--- NOTE | 2019-02-14 14:40 | PLAN ---
[facility] [place] [address] REHAB UNIT PLAN OF CARE Name: RONALDO ACEVEDO Room #: 510-P ADM IN M.R.#: [id number] Admission: 01/29/19 ������������������ Attend Phys: Tacho Rizvi MD Discharge: ������������������ Date of : 47 Report #: [id number] THIS REPORT FOR: //name// CC: Tacho Mayr DATE OF SERVICE: 01/31/2019 PROGRESS NOTE/OVERALL PLAN OF CARE SUBJECTIVE: The patient is seen back today in followup. She is in no distress. Temperature 97, pulse 82, respirations 17, blood pressure 114/51. Lower extremities, she does have limited movement of both lower extremities as previously documented. There is no focal calf swelling. She has been working in therapies, side lying sit from the left side of bed, max assist with sequencing. She has been doing some limited sitting with some loss of balance to the left, without bilateral upper extremity support. In occupational therapy, she is max assist for upper body dressing dependent for lower body dressing. ASSESSMENT: 1. Incomplete paraparesis. 2. Sacral pressure ulcer stage 4, now status post excisional debridement. This is a large sacral ulcer. 3. Status post elective laparoscopic diverting colostomy with wound debridement. 01/17/2019. 4. Insulin-dependent diabetes mellitus with prior history of peripheral neuropathy. She also has bilateral hand intrinsic weakness, right greater than left. 5. Hypertension. 6. Cardiac stents. 7. Protein calorie malnutrition. PLAN: The overall plan of care is based on the preadmission screen, post-admission physician evaluation and information garnered from therapy assessments. 1. Estimated length of stay is probably at least 10 days to 2 weeks pending progress. 2. Medical prognosis is reasonably good. 3. Anticipated interventions include the interdisciplinary acute inpatient rehabilitation program. 4. Anticipated functional outcomes would be to work on strengthening lower body improvement as far as basic transfers and ADLs to the point where we can get her back home. We will need to do some family training as we get closer. 5. Discharge destination, will be back home with her family. 6. Expected therapy by discipline includes PT and OT 1 and 1-1/2 hours per day [address] [address] REHAB UNIT PLAN OF CARE Name: RONALDO ACEVEDO Room #: 510-P ADM IN .R.#: [id number] Admission: 01/29/19 ������������������ Attend Phys: Tacho Rizvi MD Discharge: ������������������ Date of : 47 Report #: [id number] each five days a week throughout the duration of the acute inpatient rehabilitation stay. ��������������������������������������������� <ELECTRONICALLY SIGNED> ���������������������������������������� By: Tacho Rizvi MD ��������������������������������������������� 02/14/19 1440 [id number] Tacho Rizvi MD /PMT
--- NOTE | 2019-02-14 15:12 | NUR ---
cm notified by physical therapy pt going to required ahmet lift at [facility]. cm team to send rx to [facility] to see if pt approved for ahmet lift. wound care updated that pt will dc home early next week, [facility] able to accept for hh needs and wound care.
[2019-02-14 19:30] VITALS: BP 103/60
--- NOTE | 2019-02-14 19:47 | NUR ---
ASSUMED CARE AT APPROX 0715. PATIENT A/O X3-4. FORGETFUL AT TIMES. PARTICIPATED IN THERAPY. UP X1-2 PERSON ASSIST, TRANSFERS WITH THERAPY. PATIENT TOLERATED TILTING/OFFLOADING IN ELECTRIC WC. WOUND VAC DRESSING CHANGED PER WOUND CARE. OSTOMY BAG IN PLACE, CHANGED THIS DATE PER OSTOMY NURSE. OUTPUTTING SOFT UNFORMED BROWN STOOL. SMALL SMEAL OF RECTAL BM NOTED, NO OTHER RECTAL BOWEL MOVEMENTS THIS DATE. APPETITE REMAINS POOR. RESTING IN BED AT CHANGE OF SHIFT.
--- NOTE | 2019-02-15 01:38 | NUR ---
TOLERATING TURNS SIDE TO SIDE Q2H. WOUND VAC PATENT AT 125 CONTINUOUSLY. C/O TIGHT PULL AT EDGE OF BRIDGE; ADJUSTED AND EDGE RESEALED. PATIENT FAMILY MEMBERS EXPLORING RAMP RENTAL TO ACCOMODATE WHEELCHAIR AND HAVING FAMIL MEMBER PAID TO CARE FOR HER ONCE SHE GETS HOME. STATES WOULD LIKE TYLENOL LATER, NOT RIGHT NOW
[2019-02-15 07:01] VITALS: BP 138/55
[2019-02-15 07:08] VITALS: BP 108/63
[2019-02-15 19:30] VITALS: BP 97/62
--- NOTE | 2019-02-15 20:29 | NUR ---
ASSUMED CARE OF PT AT 0715. PT IS A&OX4 AND VITAL SIGNS ARE STABLE. PT OUT OF BED TO W/C WITH THERAPIES ONLY, TURNED Q2H PER ORDERS. TOLERATED PO MEDICAITONS WHOLE WITH THIN LIQUIDS. COLOSTOMY DRAINING APPROPRIATELY, STOMA SITE WNL. WOUND VAC IN PLACE, NO AIR LEAKS NOTED, CANISTER AND DRESSING CHANGED BY WOUND NURSE 02/14. LADD CATHETER DRAINING APPROPRIATELY, SECURED TO LEG. ABDOMEN DISTENDED, ALTHOUGH SOFT WITH NO COMPLAINTS OF NAUSEA, VOMITING, OR DISCOMFORT FROM PATIENT. PATIENT REPORTED PAIN IN AREA OF SACRAL WOUND, WHICH WAS MANAGED WITH PO MEDICAITONS AND PT PARTICIPATED IN SCHEDULED THERAPIES. FALL PRECATIONS IN PLACE AND NURSING WILL CONTINUE TO MONITOR.
--- NOTE | 2019-02-16 00:11 | NUR ---
ASSUMED CARE OF PT AT 1915. PT IS A&OX4. IS ON ROOM AIR. DENIES PAIN, BUT REPORTS SOME DISCOMFORT WITH WOUND VAC. PT STATED "IT'S TENDER ON MY BOTTOM. I CAN FEEL THE SQUEZZING". IS STABLE. IS TURNED Q2H. HAS BILAT LE EDEMA. COLOSTOMY & LADD IN PLACE. HOURLY ROUNDING & FALL PRECAUTIONS IN PLACE. LABS & VITALS REVIEWED. WILL CONTINUE TO MONITOR. CALL LIGHT WITHIN REACH. ACCU CHECKS ACHS. BP RUNNING ON THE LOW SIDE.
[2019-02-16 08:30] VITALS: BP 112/73
[2019-02-16 20:05] VITALS: BP 110/70
--- NOTE | 2019-02-17 02:45 | NUR ---
TURNED Q2H, WOUND VAC AT 125. TYLENOL TO HELP GET BACK TO SLEEP THIS MORNING PATIENT TOLERATING MEDS WITH WATER AND TAKING A FEW ADDITIONAL SIPS OF WATER, LADD TO DD. COLOSTOMY OUTPUT PLUS SMALL AMOUNT INCONTINENT RECTAL DRAINAGE. PLEASANT. 12 UNITS LANTUS INSULIN AT HS
[2019-02-17 07:45] VITALS: BP 113/72
--- NOTE | 2019-02-17 10:43 | NUR ---
ostomy care; pouch on x 4 days, good seal noted, changed using 2 piece system, kiersten cut to fit appliance, adapt ring applied under wafer, loop stoma pink viable budded, soft stool noted this am, no stool per rectum last few days, peristomal skin intact, family at bs, very receptive to education, supplies and info at bs, granddaughter states secure start kit from [employer] arrived in home, planning dc to home tomorrow
--- NOTE | 2019-02-17 10:48 | NUR ---
mya spoke with daughter aisha via phone call after family training had some questions " how can granddaughter get paid taken care of mom. going to go and picking supervisor ramp today before going into work. when will ahmet lift be at home. we have [facility] wound vac at home that we rented for mom, do need to bring it in tomorrow to go home?"/aisha. education that would check with [facility] for ahmet and wound care on vac question. education on talking with gayathri to ask about payment for granddaugther caring for her grandma.
--- NOTE | 2019-02-17 15:35 | NUR ---
WOUND CARE FOLLOW UP; ROUNDING WITH DR MANNY MCQUEEN AND [employer] RETAIL AIDE. THE WOUND HAS INCREASED GRANULATION TISSUE. THE MEASUREMENTS TODAY ARE 11.0 X 8.0 X 0.9. NO ODOR OR ANY OTHER S/S OF INFECTION. RECOMMENDATION; CONTINUE VAC THERAPY AT HOME. DISCUSSED WITH OBIE
--- NOTE | 2019-02-17 16:15 | NUR ---
[facility] F/U WITH [facility] AND FAXED FACE SHEET AND PT NOTES AND PROG. NOTES FOR VIVIENNE GREGORY SPOKE WITH FANNY IN INTAKE AND SHE WILL SUBMIT INFO FOR GORDO ZURITA TO FOLLOW.
[2019-02-17 19:13] VITALS: BP 105/46
--- NOTE | 2019-02-17 19:57 | NUR ---
ASSUMED CARE OF PT AT 0715. PT IS A&OX4 AND VITAL SIGNS ARE STABLE. PT TOLERATES PO MEDICAITONS WHOLE WITH THIN LIQUIDS. COLOSTOMY AND WOUND VAC BOTH CHANGED THIS SHIFT. LADD CATHETER IN PLACE, DRAINING APPROPRIATELY, AND SECURED TO LEG. ACCU CHECKS ACHS AND MANAGED WITH INSULIN PER SS ORDERS. PT TURNED BY NURSING STAFF EVERY 2 HOURS. PT UP TO ELECTRIC W/C WITH THERAPY ONLY. PLANS FOR D/C TOMORROW. FALL PRECAUTIONS IN PLACE AND NURSING WILL CONTINUE TO MONITOR.
--- NOTE | 2019-02-18 05:08 | NUR ---
PATIENT ALERT AND ORIENTED X4. WOUND VAC ON SACRUM REINFORCED, CONT AT 125. LADD PATENT YELLOW URINE. COLOSTOMY PATENT. ACCUCHECK WAS 239. PATIENT ON BEDREST. DENIES PAIN. SLEPT OFF AND ON DURING NIGHT.
[2019-02-18 07:30] VITALS: BP 102/63
[2019-02-18] MEDS ORDERED: TRAMADOL 50 MG50 MG PO (07:57)
[2019-02-18] MEDS ORDERED: MIRALAX17 GM PO (08:05)
[2019-02-18] MEDS ORDERED: TYLENOL325 MG PO (08:05)
[2019-02-18] MEDS ORDERED: ADULT LOW DOSE81 MG PO (08:05)
[2019-02-18] MEDS ORDERED: NOVOLOG100 UNIT/1 SUBQ ×2 (08:05→12:14)
[2019-02-18] MEDS ORDERED: REMERON 30 MG T30 M1 PO (08:05)
[2019-02-18] MEDS ORDERED: FOLIC ACID1 MG PO (08:05)
[2019-02-18] MEDS ORDERED: LEVEMIR SUBQ (08:05)
--- NOTE | 2019-02-18 12:21 | NUR ---
[facility], wound care will change out vac today prior to dc, transportation from [facility] wheel [facility] home [phone]. home ramp in place. [facility] has approved for ahmet lift, have left message with sherif with [facility] to see when going to be delivered to pt home.
--- NOTE | 2019-02-18 12:38 | NUR ---
WOUND CARE FOLLOW UP; D/C IS IMMINENT. TRANSFERRED FROM THE HOSPITAL VAC TO THE HOME VAC. EDUCATED THE FAMILY. NOTHING FOLLOWS
--- NOTE | 2019-02-18 12:48 | NUR ---
dp faxed hh orders to [facility], patient dc today.
[2019-02-18 15:03] VITALS: BP 102/63
--- NOTE | 2019-02-18 18:56 | NUR ---
PATIENT ALERT AND ORIENTED AND DISCHARGED TODAY TO HOME WITH FAMILY IN STABLE CONDITION VIA HER ELECTRIC WHEELCHAIR, PRESCRIPTIONS, DISCHARGE INSTRUCTIONS AND APPOINTMENTS AND WOUND VAC VIA WHEELCHAIR VAN TO HOME. PLACED [employer] H[employer]ES ON PATIENT AND WET TO DRY BANDAGE. WOUND CARE NURSE CONTACT WOUND VAC COMPANY TO SEND NEW WOUND VAC TO HOME SINCE WOUND VAC TO BE SENT HOME WITH PATIENT FAILED. PATIENT STATES SINCE DIDN'T HAVE VIVIENNE LIFT AT HOME HER FAMILY WILL TRANSFER FROM WHEELCHAIR TO BED. REVIEW MEDICATIONS, COLOSTOMY CARE AND PRESSURE RELIEF WITH PATIENT.
== END 2019-02-18 17:19 | disposition home health service (06) | DRG 52 ==
PROVIDERS: Hospitalist; Nurse Practitioner; ADMIT Physical Medicine & Rehabilitation
DX: G82.22 Paraplegia, incomplete (principal); L89.154 Pressure ulcer of sacral region, stage 4; E43 Unspecified severe protein-calorie malnutrition; N39.0 Urinary tract infection, site not specified; I10 Essential (primary) hypertension; E11.42 Type 2 diabetes mellitus with diabetic polyneuropathy; F43.21 Adjustment disorder with depressed mood; D64.9 Anemia, unspecified; E61.1 Iron deficiency; E87.5 Hyperkalemia; I25.10 Atherosclerotic heart disease of native coronary artery without angina pectoris; E11.622 Type 2 diabetes mellitus with other skin ulcer; Z79.4 Long term (current) use of insulin; Z95.5 Presence of coronary angioplasty implant and graft; Z93.3 Colostomy status; Z68.39 Body mass index [BMI] 39.0-39.9, adult; Z79.899 Other long term (current) drug therapy
CPT/HCPCS: 10112; 50010; 50101; 50386; 50403; 57119; 57120; 70005

== ENCOUNTER → 2019-03-06 | Outpatient (CLI) | payer OTHER ==
[~2019-03-06] MED LIST changes: +ADULT LOW DOSE81 MG PO; +FOLIC ACID1 MG PO; +LEVAQUIN 500 M500 M2 PO; +LEVEMIR SUBQ; +MIRALAX17 GM PO; +REMERON 30 MG T30 M1 PO; +TRAMADOL 50 MG50 MG PO; +TYLENOL325 MG PO
== END ==
LOC: HYPER 06:53
DX: E11.622 Type 2 diabetes mellitus with other skin ulcer (principal); L89.154 Pressure ulcer of sacral region, stage 4; L98.491 Non-pressure chronic ulcer of skin of other sites limited to breakdown of skin; E11.40 Type 2 diabetes mellitus with diabetic neuropathy, unspecified; E11.51 Type 2 diabetes mellitus with diabetic peripheral angiopathy without gangrene; E11.69 Type 2 diabetes mellitus with other specified complication; M86.9 Osteomyelitis, unspecified; I10 Essential (primary) hypertension; L84 Corns and callosities; I25.10 Atherosclerotic heart disease of native coronary artery without angina pectoris; E78.5 Hyperlipidemia, unspecified; K21.9 Gastro-esophageal reflux disease without esophagitis; Z79.4 Long term (current) use of insulin; Z79.84 Long term (current) use of oral hypoglycemic drugs